=== PATIENT | female | born 1945 | race Caucasian/White ===

== ENCOUNTER → 2020-03-03 14:47 | Outpatient (CLI) | payer OTHER, MEDICARE, SELFPAY ==
--- NOTE | ~2020-03-03 | MR_ITS ---
EXAMINATION: MR brain/brain stem wo/w con DATE: 03/03/2020 15:49 INDICATION: Acoustic neuroma. TECHNIQUE: Magnetic resonance imaging (MRI) of the brain and brainstem was performed without and with 12 mL MultiHance intravenous contrast. Sequences included sagittal and axial T1-weighted FSE, axial diffusion-weighted FS EPI, axial T2*-weighted GRE, axial T2-weighted FLAIR Propeller, axial T2-weight ed Propeller, small hjqve-rg-dmhb coronal FIESTA, small opfhe-js-anls coronal T1-weighted FSE, and sm all pdgua-gs-jkgn axial T1-weighted SPGR. Postcontrast sequences included axial T1-weighted FSE, smal l cwumc-jm-whdb coronal T1-weighted FSE, and small inwsj-mb-vlrb axial T1-weighted SPGR. Apparent dif fusion coefficient (ADC) maps were created. COMPARISON: Brain MRI 02/09/2019 FINDINGS: There are scattered areas of nonspecific increased T2-weighted signal intensity in the cere bral white matter, which is within normal limits for the patient's age. There is a 14 x 10 mm enhanci ng mass in left internal auditory canal and cerebellopontine angle. There is no acute ischemic infarc t or intracranial hemorrhage. The ventricles are normal in size. The paranasal sinuses are clear. The re are likely changes of ocular lens replacement surgeries. The mastoid air cells are normal. IMPRESSION: 1. 14 x 10 mm enhancing mass in left internal auditory canal and cerebellopontine angle, consistent w ith a vestibular schwannoma, increased from 11 x 7 mm on 02/09/2019. Reviewed, dictated and finalized at location A. IMPRESSION: 1. 14 x 10 mm enhancing mass in left internal auditory canal and cerebelloponti ne angle, consistent with a vestibular schwannoma, increased from 11 x 7 mm on 02/09/2019.
[2020-03-03 15:16] LABS: Estimated Glomerular Filt Rate > 60
== END ==
DX: D33.3 Benign neoplasm of cranial nerves (principal)
CPT/HCPCS: 70553; A9577

== ENCOUNTER → 2021-05-15 10:50 | Outpatient (CLI) | payer OTHER, MEDICARE, SELFPAY ==
--- NOTE | ~2021-05-15 | MR_ITS ---
EXAMINATION: MR brain IAC wo/w con DATE: 05/15/2021 12:22 INDICATION: Left-sided vestibular schwannoma. TECHNIQUE: Magnetic resonance imaging (MRI) of the brain, brainstem, and internal auditory canals was performed without and with 12 mL MultiHance intravenous contrast. Sequences included sagittal and ax ial T1-weighted FSE, axial diffusion-weighted FS EPI, axial T2*-weighted GRE, axial T2-weighted FLAIR Propeller, axial T2-weighted Propeller, small fuevw-ar-wgoz coronal FIESTA, small uipsg-oj-zkej clarissa nal T1-weighted FSE, and small tgnrg-mc-yayz axial T1-weighted SPGR. Postcontrast sequences included axial T1-weighted FSE, small mpoxp-rh-rbby coronal T1-weighted FSE, and small tqwrj-ac-bzgp axial T1- weighted SPGR. Apparent diffusion coefficient (ADC) maps were created. COMPARISON: Brain MRI 03/03/2020 FINDINGS: There are scattered areas of nonspecific increased T2-weighted signal intensity in the cere bral white matter, which is within normal limits for the patient's age. There is no intracranial hemo rrhage or acute infarction. The ventricles are normal in size. There are changes of left mastoidectom y. There is a 4 mm enhancing mass at the left porus acusticus. There are likely changes of ocular dexter s replacement surgeries. The paranasal sinuses are clear. IMPRESSION: 1. 4 mm enhancing mass at the left porus acusticus, which may be recurrent/residual neoplasm or granu lation tissue. Reviewed, dictated and finalized at location A. EAR WASTE MANAGEMENT ENGINEER IMPRESSION: 1. 4 mm enhancing mass at the left porus acusticus, which may be recurrent/resi dual neoplasm or granulation tissue.
[2021-05-15 11:35] LABS: Estimated Glomerular Filt Rate > 60
== END ==
PROVIDERS: PCP Internal Medicine
DX: D33.3 Benign neoplasm of cranial nerves (principal); R93.89 Abnormal findings on diagnostic imaging of other specified body structures
CPT/HCPCS: 70553; A9577

== ENCOUNTER 2023-06-16 14:00 | Outpatient (RCR) | payer MEDICARE, SELFPAY ==
--- NOTE | 2023-04-08 10:47 | OPREHPOC ---
Outpatient Therapy Plan of Care This is a Multidisciplinary Plan of Care that may contain components documented by all disciplines (PT, OT, and ST.) PT Problem 1 PT Problem #1 Knowledge Deficit PT Goal 1 Goal 1. Patient will perform independent HEP Target Visit 5 PT Problem 2 PT Problem #2 Impaired Strength PT Goal 1 Goal 1. Improve pelvic floor strength to 4/5 to decrease incontinence 2. Improve pelvic floor endurance to 10 seconds to decrease incontinence Target Visit 5 PT Problem 3 PT Problem #3 Impaired Functional ADLs PT Goal 1 Goal 1. Patient will report no more than 1 instance of fecal or urinary incontinence i n1 month Target Visit 5
--- NOTE | 2023-04-08 10:47 | PTOPEVAL1 ---
Assessment and note entered by Brianna Fields DPT Evaluation Information Assessment Status Evaluation Subjective Information Pt reports she had an anal motility test performed and was sent to therapy. Pt is reporting fecal incontinence, somewhat improved recently after drinking metamucil twice a day. Had previously been noticing a lot of impaction and constipation. Incontinence has been worsening over the past few years. Recently reports BM every 2-3 days. Fecal incontinence typically occurs weekly. Denies pain with BM. Urinates less than 10 times a day, sometimes gets up 1 time at night to void. Urinary incontinence maybe 3 times a month. Can hold urge to void unlimited amounts of time unless she has had a lot of fluid, can hold urge to BM much less but unable to give a time frame. Denies history of pelvic pain. Pt has been 4 times with 4 deliveries, all vaginal with tearing. Partial hysterectomy in 1985. Bladder sling in 2018. Uses 1 pantiliner a day, does not have to change her clothes. Pt reports she eats 3 meals a day, sometimes breakfast is small and occasionally skips. Drinks coffee, soda/tea sometimes, milk, and water. Beer very infrequently, maybe once a month. Patient goal: decrease fecal incontinence, reports embarrassment. Avoids going out in the community to avoid having accidents out anywhere. Acoustic neuroma tumor removal in 2019. Reported Pain Level Pain Score 0: Self Report Assessment PT Clinical Summary The patient is presenting to skilled therapy with a several year history of fecal incontinence and infrequent urinary incontinence. She presents with decreased pelvic floor strength and endurance and decreased core strength which are contributing to her incontinence and avoidance of going out in the community. She will highly benefit from therapy to address her impairments to decrease incontinence and return to prior level of function . Plan of Care Interventions Manual Therapy,Neuro Re-education,Patient/ Caregiver Education,Therapeutic Activities, Therapeutic Exercise PT Services Indicated Yes Treatment Frequency and 1 time a week for 4 weeks Duration
--- NOTE | 2023-05-06 11:35 | OPREHPOC ---
Outpatient Therapy Plan of Care This is a Multidisciplinary Plan of Care that may contain components documented by all disciplines (PT, OT, and ST.) PT Problem 1 PT Problem #1 Knowledge Deficit PT Goal 1 Goal 1. Patient will perform independent HEP Target Visit 5 Progress Partially Met PT Problem 2 PT Problem #2 Impaired Strength PT Goal 1 Goal 1. Improve pelvic floor strength to 4/5 to decrease incontinence 2. Improve pelvic floor endurance to 10 seconds to decrease incontinence Target Visit 5 Progress Partially Met Comment endurance 10 seconds PT Problem 3 PT Problem #3 Impaired Functional ADLs PT Goal 1 Goal 1. Patient will report no more than 1 instance of fecal or urinary incontinence in 1 month Target Visit 5 Progress Met
--- NOTE | 2023-05-06 11:35 | PTOPPROG ---
Assessment and note entered by Brianna Fields DPT Evaluation Information Assessment Status Progress Subjective Information Pt reports improvements with therapy and has not had any bowel incontinence since starting therapy. States her stomach is feeling a little unwell today, I did not eat well yesterday . No urine leakage. Assessment PT Clinical Summary The patient has made good progress in therapy and reports no fecal incontinence in the last 4 weeks. She demonstrates improved core and hip strength and improved pelvic floor endurance. She continues to display pelvic floor weakness and will benefit from further therapy to progress strength to fully eliminate incontinence. Plan of Care Interventions Manual Therapy,Neuro Re-education,Patient/ Caregiver Education,Therapeutic Activities, Therapeutic Exercise PT Services Indicated Yes Treatment Frequency and 1 visit every other week for 2 visits Duration These treatments will address the objective and functional deficits as defined above. The patient will be advanced safely and appropriately in order for the patient to progress towards his/her prior level of function. Additional exercises will be introduced and as well as a comprehensive home exercise program upon discharge, if needed, ?to ensure carryover of functional gains achieved in the clinic. This treatment plan has been reviewed and agreement upon by the patient.
--- NOTE | 2023-06-16 14:30 | OPREHPOC ---
Outpatient Therapy Plan of Care This is a Multidisciplinary Plan of Care that may contain components documented by all disciplines (PT, OT, and ST.) PT Problem 1 PT Problem #1 Knowledge Deficit PT Goal 1 Goal 1. Patient will perform independent HEP Target Visit 5 Progress Met PT Problem 2 PT Problem #2 Impaired Strength PT Goal 1 Goal 1. Improve pelvic floor strength to 4/5 to decrease incontinence 2. Improve pelvic floor endurance to 10 seconds to decrease incontinence Target Visit 5 Progress Partially Met Comment endurance 10 seconds PT Problem 3 PT Problem #3 Impaired Functional ADLs PT Goal 1 Goal 1. Patient will report no more than 1 instance of fecal or urinary incontinence in 1 month Target Visit 5 Progress Met
--- NOTE | 2023-06-16 14:30 | PTOPDC ---
Assessment and note entered by Brianna Fields DPT Evaluation Information Assessment Status Discharge Subjective Information Pt reports she has not had any incontinence recently and her bowels have been better as well. Maybe 1-2 instances of fecal incontinence in the last month and small volume when it does happen. Does not feel pelvic floor issues are affecting her day to day routine at all. Pt does report she was sick yesterday is is still generally not feeling well, a little lightheaded. Reported Pain Level Pain Score 0: Self Report Assessment PT Clinical Summary The patient continues to show progress in therapy and reports overall decreased incontinence and no limitation with ADL's. She demonstrates improved LE and core strength. Due to her progress, plan for discharge at this time. She has been educated in a thorough HEP and to follow up with PT and/or MD as needed. Plan of Care PT Services Indicated No
== END 2023-06-16 15:17 | disposition home or self-care (01) ==
LOC: ANHPT 14:00
PROVIDERS: PCP Internal Medicine; Visit Provider Internal Medicine
DX: R15.9 Full incontinence of feces (principal)
CPT/HCPCS: 97112; 97162; 97530

== ENCOUNTER 2025-05-20 06:24 | Inpatient (IN) | payer MEDICARE, SELFPAY ==
[2025-05-20] VITALS (13 sets, daily range): BP systolic 131–190; BP diastolic 49–74; PULSE 60–89; RESP 10–20; TEMP 36–36.8; O2SAT 96–100; BMI 22.0
--- NOTE | ~2025-05-20 | CT_ITS ---
CT HEAD NON-CONTRAST Clinical History: AMS Comparison: Brain MRI 05/15/2021 Technique: Unenhanced axial images skull base to vertex Coronal, sagittal reformats CT images acquired with automatic exposure control for dose reduction DLP: 605 mGy-cm Findings: Chronic white matter microvascular ischemic changes Sulci, ventricles: Unremarkable. No intracerebral hemorrhage. No evidence acute territorial infarct. No mass effect, midline shift. Bony calvarium intact. Visualized paranasal sinuses: Clear. Mastoid air cells: Clear. IMPRESSION: 1. No acute intracranial findings. Reviewed, dictated and finalized at location R. L CLEANER HAND
--- NOTE | ~2025-05-20 | XR_ITS ---
Examination: XR abdomen/kub 1V Clinical History: r/o impaction Comparison: None Technique: 2 views portable supine AP abdomen Findings: Scattered colonic gas and stool. Stool volume not abnormally large. No large rectal stool volume. Small bowel loops poorly seen. Air-fluid levels cannot be assessed on supine projection. Right hemipelvis phleboliths. No acute bony abnormality IMPRESSION: 1. No acute abnormality. Reviewed, dictated and finalized at location R. F SCIENTIST IMPRESSION: 1. No acute abnormality.
--- NOTE | ~2025-05-20 | MR_ITS ---
EXAM/PROCEDURE: MR brain/brain stem wo/w con HISTORY: Altered mental status, TIA COMPARISON: May 15, 2021 TECHNIQUE: Pre and postcontrast enhanced brain MRI performed FINDINGS: There has been progression in mild to moderately severe diffuse periventricular T2 weighted hyperintense white matter changes but no abnormal enhancing lesions or masses and no restricted diffusion or acute ischemia on today's exam. No mass, mass effect or hemorrhage. IACs and mesial temporal regions appear within normal limits. Small area of left sided acoustics enhancement not clearly changed on today's exam with no clearly defined lesion seen. Brainstem and cerebellum appear stable. Periorbital paranasal calvarial structures also appear stable. IMPRESSION: 1. No acute ischemic event, mass or hemorrhage. No suspicious lesions or masses seen. Previously described left-sided acusticus lesion or enhancement focus not clearly changed. 2. Mild to moderately advanced chronic microvascular ischemic appearing white matter changes which have progressed since the 2020 exam. Reviewed, dictated and finalized at location A. HER PRODUCTION ARTISAN IMPRESSION: 1. No acute ischemic event, mass or hemorrhage. No suspicious lesions or masses seen. Previously described left-sided acusticus lesion or enhancement focus no t clearly changed. 2. Mild to moderately advanced chronic microvascular ischemic appearing white m atter changes which have progressed since the 2020 exam.
--- NOTE | ~2025-05-20 | CT_ITS ---
EXAMINATION: CT abdomen pelvis w con DATE: 05/21/2025 17:07 INDICATION: 80-year-old with vomiting. TECHNIQUE: Computed tomography (CT) of the abdomen and pelvis was performed with administration of 100 cc of intravenous contrast. Automated exposure control and iterative reconstruction technique were employed. The dose-length product was 232.41 mGy-cm. COMPARISON: KUB dated 05/20/2025. FINDINGS: Lung bases do not show acute findings. Large hiatus hernia noted in the lower mediastinum. No focal lesions of the liver and spleen. Gallbladder is distended in size without edema or calcified calculi. Pancreas bile duct do not show acute findings. Kidneys do not show calculi or obstruction. No evidence of small bowel obstruction. Severely atherosclerotic changes of proximal renal arteries. No inflammatory changes in the pelvis. Moderate fecal impaction in the colon. No free fluid or free air. IMPRESSION: 1. No acute findings in the upper abdomen and pelvis. Fecal impaction in the colon. 2. Mildly distended gallbladder. No edema of the gallbladder wall. No calcified stones. 3. Hiatus hernia. Reviewed, dictated and finalized at location T. OYMENT TRAINER IMPRESSION: 1. No acute findings in the upper abdomen and pelvis. Fecal impaction in the co merlene. 2. Mildly distended gallbladder. No edema of the gallbladder wall. No calcified stones. 3. Hiatus hernia.
--- NOTE | ~2025-05-20 | XR_ITS ---
EXAMINATION: XR chest 1V portable DATE: 05/20/2025 08:29 INDICATION: Altered mental status TECHNIQUE: A single frontal view of the chest was obtained. COMPARISON: None. FINDINGS: The lungs are clear other than scattered granulomatous appearing changes. Heart size normal. Bones appear intact. IMPRESSION: 1. Portable chest x-ray with no focal acute process. Reviewed, dictated and finalized at location A. E HAND CARDING
--- NOTE | ~2025-05-20 | CT_ITS ---
CTA NECK, CTA HEAD Clinical History: concern CVA, lkn 9 pm Comparison: CT head without contrast earlier same day TECHNIQUE: Helical images thoracic inlet to vertex IV contrast information not listed in PACS Coronal, sagittal reformats. Multi planar MIPS CT images acquired with automatic exposure control for dose reduction DLP: 1148 mGy-cm Findings: NASCET Criteria utilized CTA NECK Aortic arch: No aneurysm or dissection. Great vessel origins: No stenosis. CCAs: No stenosis. Cervical ICAs: No stenosis. Vertebral Arteries: Patent. Lung Apices: Clear. Thyroid: Enlarged, several small nodules. Nodes: No enlarged nodes. Bones: No acute bony abnormality. CTA HEAD: Aneurysms: None. Intracranial ICAs: Patent. ACAs and their distal branches: Patent, unremarkable. A-Comm: Identified. Patent, unremarkable. MCAs and their distal branches: Patent, unremarkable. Basilar artery: Patent. Terminates into superior cerebellar arteries. payable manager and their distal branches: Patent. Congenitally absent P1 segment bilaterally, with origin P-comm supply. P-Comms: Identified. Patent, unremarkable. IMPRESSION: CTA NECK: 1. No acute findings. CTA HEAD: 1. No acute findings. Reviewed, dictated and finalized at location R. D BANK ASSISTANT
--- NOTE | 2025-05-20 06:49 | ECG_ITS ---
Test Date: 2025-05-20 07:37:42 Measurements Intervals [place] Rate: 65 P: 58 MT: 151 QRS: 35 QRSD: 105 T: 59 QT: 422 QTc: 442 Interpretive Statements SINUS RHYTHM No previous ECG available for comparison Electronically Signed On 05-20-2025 11:24:07 FINISH MILL OPERATOR by Fred Richards D.O
[2025-05-20 07:36] LABS: Hematocrit 41.3 % (37.0-47.0); Hemoglobin 14.9 g/dL (12.0-15.0); Immature Granulocyte Percent A 0.5 % (0-0.5); Lymphocytes Absolute Auto 1.35 K/mm3 (0.9-3.2); Mean Corpuscular HGB Conc 36.1 g/dl (32-36); Mean Corpuscular Hemoglobin 29.8 pg (26-34); Mean Corpuscular Volume 82.6 fl (80-100); Nucleated Red Blood Cells Absolute Auto 0.000 K/mm3 (0.0-0.012); Nucleated Red Blood Cells Perc 0.0 % (0.0-0.2); Platelet Count Result 196 k/mm3 (150-375); Red Blood Count 5.00 M/mm3 (4.2-5.4); White Blood Count 10.6 K/mm3 (4.5-10.0)
--- NOTE | 2025-05-20 07:37 | ED.GENADULT ---
HPI - General Adult General Chief complaint: Altered Mental Status Stated complaint: AMS, N/V Time Seen by Provider: 05/20/25 07:00 History of Present Illness HPI narrative: 80-year-old female present to the emergency department for evaluation for increased altered mental status. Family states patient is more altered than normal. Patient states that the patient was fine last night going to bed but did seem more confused this morning and began having some word-finding difficulty. Patient does have a prior history of a brain tumor that was excised approximately 4 years ago at [facility]. Patient does continue have close follow-up with [facility] and was scheduled to have an MRI today. This was just routine to ensure that there has been no enlarging of the residual tumor. Patient has no prior history of seizure or epilepsy per family. At time of initial evaluation patient was slow to respond and had difficulty participating in the neuro exam. Related Data Home Medications ?Medication ?Instructions ?Recorded ?Confirmed ?Last Taken ?Type carvedilol 6.25 mg tablet 6.25 mg PO Q12H 05/20/25 05/20/25 Unknown History diazepam 10 mg tablet 10 mg PO Q6H PRN anxiety 05/20/25 05/20/25 Unknown History duloxetine 20 mg capsule,delayed 20 mg PO DAILY 05/20/25 05/20/25 Unknown History release estradiol 0.01% (0.1 mg/gram) 1 g vaginal .COMPLEX 05/20/25 05/20/25 Unknown History vaginal cream fluticasone propionate 50 2 spray intranasal DAILY 05/20/25 05/20/25 Unknown History mcg/actuation nasal spray,suspension hydralazine 50 mg tablet 50 mg PO BID 05/20/25 05/20/25 Unknown History hydrochlorothiazide 25 mg tablet 25 mg PO DAILY 05/20/25 05/20/25 Unknown History losartan 100 mg tablet 100 mg PO DAILY 05/20/25 05/20/25 Unknown History nifedipine 30 mg tablet,extended 30 mg PO DAILY 05/20/25 05/20/25 Unknown History release omeprazole 20 mg capsule,delayed 20 mg PO BID 05/20/25 05/20/25 Unknown History release rosuvastatin 20 mg tablet 20 mg PO HS 05/20/25 05/20/25 Unknown History Allergies Allergy/AdvReac Type Severity Reaction Status Date / Time Quinolones Allergy Unknown Verified 05/20/25 17:14 Review of Systems Review of Systems: All systems reviewed & are unremarkable except as noted in HPI and below PMFSH Family History Family History (Updated 05/20/25 @ 16:23 by Albin Murphy RN) Father Acute myocardial infarction Mother Hypertension Social History Social History Smoking status: Former smoker Alcohol intake: never Substance use: never Lack of Transportation: No Lack of Food: Never True Current Housing: I Have Housing Concerned About Future Housing: No Difficulty Paying Gas/Electric Bills: No Difficulty Paying for Meds: No Currently Unemployed: No Education: High School Diploma/GED Difficulty w/ Childcare or Family Care: No Spiritual care concerns: No Exam Narrative: APPEARANCE: Well appearing, no pain, no distress, well-nourished. HEAD: normocephalic, atraumatic. EYES: PERRLA/EOMI, conjunctivae clear. NOSE: Normal no drainage EARS:TMS clear with good light reflex. THROAT: Pharynx clear, no exudate. NECK: Supple. No adenopathy, no masses. RESPIRATORY: Airway patent, respirations nonlabored. Clear to auscultation bilaterally, no rales, rhonchi, wheezing. CARDIOVASCULAR: Regular rate and rhythm without murmurs rubs or gallops. ABDOMINAL: Soft, nontender, nondistended, normal bowel sounds MUSCULOSKELETAL: Moves all extremities. Strength/ROM intact, No edema, No calf tenderness. NEURO: Confused with no focal neuro deficit SKIN: Warm, dry. Normal Color Course Vital Signs Vital signs: Vital Signs Temperature 96.8 F L 05/20/25 06:22 Pulse Rate 68 05/20/25 06:22 Respiratory Rate 20 05/20/25 06:22 Blood Pressure 190/69 H 05/20/25 06:22 Pulse Oximetry 98 05/20/25 06:22 Oxygen Delivery Room Air 05/20/25 06:22 Temperature 98.3 F 05/20/25 16:00 Pulse Rate 63 05/20/25 16:00 Respiratory Rate 16 05/20/25 16:00 Blood Pressure 180/67 H 05/20/25 16:00 Pulse Oximetry 99 05/20/25 16:00 Oxygen Delivery Room Air 05/20/25 16:00 Medical Decision Making MDM Narrative Medical decision making narrative: 80-year-old female present to the emergency department for evaluation for worsened mental status. Patient is currently being treated for urinary tract infection but UA does not appear infectious, patient is afebrile and patient has a mild leukocytosis of 10.6. CTA was negative for acute finding. Patient does have a low sodium of 122 and patient was initially treated with a L of lactated Ringer's. On initial exam patient was having difficulty cooperating with neuro exam and was having some word-finding difficulty. This is the symptoms that the patient's noticed this morning. On re-evaluation the patient appears back to her normal baseline. Patient states that in order to have the MRI that she will need to have some Valium. Patient was able to give me her patient history and patient was alert orientated improved compared to this morning. I did discuss the case with Neurology and they are consulted. Patient will be admitted for an MRI and potential seizure workup. Patient has no prior history of seizure. Case will be discussed with the hospitalist. Differential Diagnosis Differential Diagnosis: TIA, CVA, UTI, delirium, seizure Vital Signs Vital Signs: Vital Signs Temperature 96.8 F L 05/20/25 06:22 Pulse Rate 68 05/20/25 06:22 Respiratory Rate 20 05/20/25 06:22 Blood Pressure 190/69 H 05/20/25 06:22 Pulse Oximetry 98 05/20/25 06:22 Oxygen Delivery Room Air 05/20/25 06:22 Temperature 98.3 F 05/20/25 16:00 Pulse Rate 63 05/20/25 16:00 Respiratory Rate 16 05/20/25 16:00 Blood Pressure 180/67 H 05/20/25 16:00 Pulse Oximetry 99 05/20/25 16:00 Oxygen Delivery Room Air 05/20/25 16:00 Lab Data Lab results reviewed: Yes I reviewed the patient's lab results. 05/20/25 07:30 05/20/25 07:30 Labs: Lab Results 05/20/25 05/20/25 Range/Units 07:30 07:47 WBC 10.6 H (4.5-10.0) K/mm3 RBC 5.00 (4.2-5.4) M/mm3 Hgb 14.9 (12.0-15.0) g/dL Hct 41.3 (37.0-47.0) % MCV 82.6 (80-100) fl MCH 29.8 (26-34) pg MCHC 36.1 H (32-36) g/dl RDW 11.8 (11.5-14.5) % Plt Count 196 (150-375) k/mm3 MPV 12.3 H (7.4-10.4) fl Immature Gran % (Auto) 0.5 (0-0.5) % Neut % (Auto) 82.0 H (45.5-73.1) % Lymph % (Auto) 12.7 L (18.3-44.2) % Cloud % (Auto) 4.1 (2.6-8.5) % Eos % (Auto) 0.2 (0-4.4) % Baso % (Auto) 0.5 (0.2-1.2) % Lymph # (Auto) 1.35 (0.9-3.2) K/mm3 Cloud # (Auto) 0.4 (0.1-0.6) K/mm3 Eos # (Auto) 0.0 (0-0.3) K/mm3 Baso # (Auto) 0.1 (0.0-0.1) K/mm3 Abs Immat Gran (auto) 0.05 H (0.00-0.031) K/mm3 Absolute Neuts (auto) 8.7 H (1.3-6.7) K/mm3 Absolute Nucleated RBC 0.000 (0.0-0.012) K/mm3 Nucleated RBC % 0.0 (0.0-0.2) % PT 13.0 (11.1-14.7) Seconds INR 1.0 APTT 29.2 (22.3-36.8) Seconds Sodium 122 L (137-145) mmol/L Potassium 4.2 (3.4-5.0) mmol/L Chloride 88 L (98-107) mmol/L Carbon Dioxide 26 (22-30) mmol/L Anion Gap 8 (4-12) mmol/L BUN 15 (7-17) mg/dL Creatinine 0.59 L (0.7-1.0) mg/dL Estim Creat Clear Calc Not Reportable Estimated GFR > 60 (59 - ) Glucose 135 H (65-110) mg/dL Calcium 9.2 (8.4-10.2) mg/dL Total Bilirubin 0.9 (0.2-1.3) mg/dL AST 29 (14-36) U/L ALT 23 (6-35) U/L Alkaline Phosphatase 58 (38-126) U/L Total Protein 7.9 (6.3-8.2) g/dL Albumin 4.8 (3.5-5.1) g/dL Urine Color Dark yellow (Yellow) Urine Appearance Clear (Clear) Urine pH 7.5 (5.0-9.0) Ur Specific Dalhart 1.017 (1.001-1.035) Urine Protein 1+ H (Negative) mg/dL Urine Glucose (UA) Negative (Negative) mg/dL Urine Ketones 1+ H (Negative) mg/dL Ur Blood (Man) Negative (Negative) Urine Nitrate Negative (Negative) Urine Bilirubin Negative (Negative) Urine Urobilinogen 1.0 (<2.0) mg/dL Leukocyte Esterase Rfl Negative (Negative) NAN/UL Urine RBC 3-5 H (0-2) /hpf Urine WBC 0-5 (0-3) /hpf Ur Squamous Epith Cells None seen (Few) /hpf Urine Bacteria None seen /hpf Urine Casts 0-2 Influenza A (RT-PCR) Negative (Negative) Influenza B (RT-PCR) Negative (Negative) RSV (RT-PCR) Negative (Negative) SARS-CoV-2 RNA (RT-PCR) Negative (Negative) Imaging Data Attestation: I personally reviewed and interpreted this imaging study as follows: My impression: Chest x-ray: No acute cardiopulmonary abnormality Radiologist's impression: Impressions Head CT 05/20/25 07:23 IMPRESSION: 1. No acute intracranial findings. Chest X-Ray 05/20/25 08:29 IMPRESSION: 1. Portable chest x-ray with no focal acute process. Head/Neck CTA 05/20/25 09:16 IMPRESSION: CTA NECK: 1. No acute findings. CTA HEAD: 1. No acute findings. Discharge Plan Discharge Clinical Impression: Altered mental status Patient Disposition: Still a Patient Condition: Stable
[2025-05-20 07:47] LABS: INR 1.0; Prothrombin Time 13.0 Seconds (11.1-14.7)
[2025-05-20 07:48] LABS: Partial Thromboplastin Time 29.2 Seconds (22.3-36.8)
[2025-05-20 07:54] LABS: Alanine Aminotransferase 23 U/L (6-35); Albumin Level 4.8 g/dL (3.5-5.1); Alkaline Phosphatase 58 U/L (38-126); Anion Gap 8 mmol/L (4-12); Aspartate Amino Transferase 29 U/L (14-36); Bilirubin,Total 0.9 mg/dL (0.2-1.3); Blood Urea Nitrogen 15 mg/dL (7-17); Calcium 9.2 mg/dL (8.4-10.2); Carbon Dioxide 26 mmol/L (22-30); Chloride 88 mmol/L (98-107); Estimated Glomerular Filt Rate > 60; Glucose 135 mg/dL (65-110); Potassium 4.2 mmol/L (3.4-5.0); Sodium 122 mmol/L (137-145); Total Protein 7.9 g/dL (6.3-8.2)
[2025-05-20 07:57] LABS: Add Urine Microscopic? YES; Appearance Urine Clear (Clear); Glucose Urine UA Negative (Negative); Leukocyte Esterase Ur Negative LEU/UL (Negative); Nitrate Urine Negative (Negative); Non Pathogenic Casts 0-2; Specific Grav Ur 1.017 (1.001-1.035)
[2025-05-20 08:12] LABS: Influenza A QL RT-PCR Negative (Negative); Influenza B QL RT-PCR Negative (Negative); RSV RNA, RT-PCR Negative (Negative); SARS-CoV-2 RNA PCR Negative (Negative)
[2025-05-20] MEDS: LACTATED RINGERS 1,000 ML 999 ML IV CONT (08:58)
--- NOTE | 2025-05-20 15:31 | WPCEDHO ---
ED Hand Off Checklist All vitals saved:YES IV Site documented:YES All med administrations documented:YES Triage Note Triage Note brought in by ems from home - 05/20/25 06:22 family called because a little more altered than usual. ems said oriented to person place and situation, not time upon arrival . according to ems stated she has a history of brain tumor. Allergies No Known Allergies Allergy (Unverified 01/08/19 10:30) Administered/Completed Medications Discontinued Medications Lactated Ringer's (Lr - Lactated Ringers Iv) 1,000 mls @ 999 mls/hr IV CONT .Q1H1M STA Stop: 05/20/25 09:37 Last Infusion: 05/20/25 10:50 Dose: Infused Documented By: Admin: 05/20/25 08:58 Dose: 999 mls/hr Documented By: MYRIAM Interventions/Assessments IV / Saline Lock, Insert Start: 05/20/25 06:49 Freq: STAT Status: Active Protocol: Document 05/20/25 08:58 AZG (Rec: 05/20/25 08:58 AZG [id number]) IV Assessment Peripheral Access Left Antecubital IV Catheter Access Initiated Before Arrival IV Insertion Date 05/20/25 Catheter Gauge 20 IV Site Assessment WNL IV Care and WNL Maintenance PA: Cardiovascular Assessment Start: 05/20/25 06:22 Freq: Status: Complete Protocol: Document 05/20/25 06:22 SRW (Rec: 05/20/25 06:45 SRW [id number]) Cardiovascular Assessment Cardiovascular None Symptoms Skin Description Warm Heart Sounds Normal Jugular Vein None Distention PA: Neurological Assessment Start: 05/20/25 06:22 Freq: Status: Complete Protocol: Document 05/20/25 12:00 CFG (Rec: 05/20/25 14:23 CFG [id number]) Neurological Assessment Level of Alert Consciousness Arousable to Verbal Orientation Oriented to Person,Oriented to Place,Oriented to Time Neurological Weakness, General Symptoms Hallucination Type None Behavior Appropriate,Cooperative,Fatigued Patient Unable to Comprehend Comprehension Memory Description Unable to Assess Ability to Maintain Unable to Assess Balance Facial Symmetry Symmetrical Speech Pattern Delayed Ability to Swallow Normal Tongue Position Unable to Assess Finger to Nose Test Activity Impossible Heel to Dasilva Test Activity Impossible Bilateral All Extremities Extremity Movement Normal Description Bilateral All Extremities Sensation Normal Description Dresser Coma Scale Eyes Open Verbal Oriented and Alert Motor Follows Commands Mary Coma Total 15 Score PA: Respiratory Assessment Start: 05/20/25 06:22 Freq: Status: Complete Protocol: Document 05/20/25 06:22 SRW (Rec: 05/20/25 06:46 SRW [id number]) Respiratory Assessment Symptoms None Effort Normal Pattern Regular Chest Expansion Symmetrical Last Vital Signs Temperature 96.8 F L 05/20/25 06:22 Pulse Rate 65 05/20/25 15:00 Respiratory Rate 11 L 05/20/25 15:00 Pulse Oximetry 100 05/20/25 15:00 Blood Pressure 166/66 H 05/20/25 15:00 Blood Pressure Mean 99 05/20/25 15:00 Oxygen Delivery Room Air 05/20/25 06:22 Weight 62.9 kg 05/20/25 06:22 Last Result - Abnormals Only WBC 10.6 K/mm3 (4.5-10.0) H 05/20/25 07:30 MCHC 36.1 g/dl (32-36) H 05/20/25 07:30 MPV 12.3 fl (7.4-10.4) H 05/20/25 07:30 Neut % (Auto) 82.0 % (45.5-73.1) H 05/20/25 07:30 Lymph % (Auto) 12.7 % (18.3-44.2) L 05/20/25 07:30 Abs Immat Gran (auto) 0.05 K/mm3 (0.00-0.031) H 05/20/25 07:30 Absolute Neuts (auto) 8.7 K/mm3 (1.3-6.7) H 05/20/25 07:30 Sodium 122 mmol/L (137-145) L 05/20/25 07:30 Chloride 88 mmol/L (98-107) L 05/20/25 07:30 Creatinine 0.59 mg/dL (0.7-1.0) L 05/20/25 07:30 Glucose 135 mg/dL (65-110) H 05/20/25 07:30 Urine Protein 1+ mg/dL (Negative) H 05/20/25 07:47 Urine Ketones 1+ mg/dL (Negative) H 05/20/25 07:47 Urine RBC 3-5 /hpf (0-2) H 05/20/25 07:47 Most Recent Suicide Severity Rating Suicide Severity Rating NO RISK INDICATED 05/20/25 06:22
--- NOTE | 2025-05-20 15:58 | ADMGEN ---
This patient, Jodee Acosta, was admitted to 2 Medical Room 256-. Patient/family oriented to hospital policies and general routines including ID bracelet, bed and alarms, visiting hours, pain management, procedures, bathroom and other care routines, personal items, smoking policy, room service/diet, and visiting hours. Information on how to activate the Rapid Response Team has been discussed. Patient/Family are encouraged to report perceived risks to care and to ask questions if they do not understand what they are told or what they should do.
--- NOTE | 2025-05-20 16:23 | PM.IMHP ---
H&P: HPI History of Present Illness Date/Time: 05/20/25 16:23 Chief Complaint: AMS Narrative: 80-year-old female past medical history of left-sided vestibular schwannoma, HTN, hyperlipidemia, GERD presents to the ED with her family on 05/20/2025 for increased altered mental status. Family states that the patient is more altered than normal. The further state the patient was her normal self when she went to bed but seemed more confused this morning and that she had some word-finding difficulty. Patient had her vestibular schwannoma excised in 2019 at [facility]. She continues to follow-up and has serial MRIs to monitor it. Per family, patient has no seizure history. Patient is forgetful and is somewhat of a poor historian. She denies fevers, chest pain, cough, vision changes. Patient states she did have a bout of nausea and vomiting on 05/19. She states she has constipation at times which she takes Colace for. Patient endorses a headache which she states began after starting a new blood pressure medication and is concerned it is the cause of her headache. Mental status did improve while patient was in the ED. Initial vital signs 190/69, HR 68, respirations 20, afebrile and 98% on room air Lab significant for WBC 10.6, sodium 122, chloride 88, creatinine 0.59, glucose 135, UA without signs of infection. Viral panel negative. ECG with normal sinus rhythm Head CT with no acute intracranial findings. Chest x-ray with no acute process. CTA head neck with no acute findings. Review of Systems Review of Systems: All systems reviewed & are unremarkable except as noted in HPI and below PMFSH Past Medical History Medical History (Updated 05/20/25 @ 22:52 by Lashon Aceves APRN) Vestibular schwannoma Hypertension Hyperlipidemia Family History Family History (Updated 05/20/25 @ 16:23 by Albin Murphy RN) Father Acute myocardial infarction Mother Hypertension Social History Social History Smoking status: Former smoker Alcohol intake: never Substance use: never Lack of Transportation: No Lack of Food: Never True Current Housing: I Have Housing Concerned About Future Housing: No Difficulty Paying Gas/Electric Bills: No Difficulty Paying for Meds: No Currently Unemployed: No Education: High School Diploma/GED Difficulty w/ Childcare or Family Care: No Spiritual care concerns: No Meds Home Medications and Allergies Home Medications ?Medication ?Instructions ?Recorded ?Confirmed ?Type carvedilol 6.25 mg tablet 6.25 mg PO Q12H 05/20/25 05/20/25 History diazepam 10 mg tablet 10 mg PO Q6H PRN anxiety 05/20/25 05/20/25 History duloxetine 20 mg capsule,delayed 20 mg PO DAILY 05/20/25 05/20/25 History release estradiol 0.01% (0.1 mg/gram) 1 g vaginal .COMPLEX 05/20/25 05/20/25 History vaginal cream fluticasone propionate 50 2 spray intranasal DAILY 05/20/25 05/20/25 History mcg/actuation nasal spray,suspension hydralazine 50 mg tablet 50 mg PO BID 05/20/25 05/20/25 History hydrochlorothiazide 25 mg tablet 25 mg PO DAILY 05/20/25 05/20/25 History losartan 100 mg tablet 100 mg PO DAILY 05/20/25 05/20/25 History nifedipine 30 mg tablet,extended 30 mg PO DAILY 05/20/25 05/20/25 History release omeprazole 20 mg capsule,delayed 20 mg PO BID 05/20/25 05/20/25 History release rosuvastatin 20 mg tablet 20 mg PO HS 05/20/25 05/20/25 History Allergies Allergy/AdvReac Type Severity Reaction Status Date / Time Quinolones Allergy Unknown Verified 05/20/25 17:14 Vital Signs Vital Signs - 24 hr 05/20/25 06:22 05/20/25 08:31 05/20/25 09:00 Temperature 96.8 F L Pulse Rate 68 69 66 Respiratory Rate 20 16 10 L Blood Pressure 190/69 H 171/74 H 174/64 H Pulse Oximetry 98 98 98 Oxygen Delivery Room Air 05/20/25 09:44 05/20/25 10:02 05/20/25 11:45 Temperature Pulse Rate 64 62 60 Respiratory Rate 15 13 16 Blood Pressure 154/51 H 146/54 H 131/49 L Pulse Oximetry 98 98 96 Oxygen Delivery 05/20/25 13:18 05/20/25 14:17 05/20/25 15:00 Temperature Pulse Rate 89 62 65 Respiratory Rate 11 L 16 11 L Blood Pressure 186/60 H 178/60 H 166/66 H Pulse Oximetry 98 96 100 Oxygen Delivery Exam Narrative: GENERAL: non-toxic appearing, in no acute distress. HEAD: Normocephalic, atraumatic. EYES: PERRLA. Conjunctivae clear. NOSE: Normal no drainage. THROAT: Pharynx clear, no exudate. NECK: Trachea midline. No adenopathy, no masses. RESPIRATORY: Airway patent, respirations nonlabored. CTA. CARDIOVASCULAR: Regular rate and rhythm BREASTS: Defer GASTROINTESTINAL: Abdomen is soft and nontender. No organomegaly. Bowel sounds hypoactive. GENITOURINARY: Defer MUSCULOSKELETAL: Moves all extremities. No gross deformities. Generalized weakness baseline SKIN: Warm, dry, normal color. NEURO: A&O X3. Speech clear. Patient forgetful PSYCHIATRIC: Normal interaction H&P: Results Labs Labs: Short CBC 05/20/25 Range/Units 07:30 WBC 10.6 H (4.5-10.0) K/mm3 Hgb 14.9 (12.0-15.0) g/dL Hct 41.3 (37.0-47.0) % Plt Count 196 (150-375) k/mm3 BMP 05/20/25 07:30 Sodium 122 L Potassium 4.2 Chloride 88 L Carbon Dioxide 26 BUN 15 Creatinine 0.59 L Glucose 135 H Calcium 9.2 Liver Function 05/20/25 Range/Units 07:30 Total Bilirubin 0.9 (0.2-1.3) mg/dL AST 29 (14-36) U/L ALT 23 (6-35) U/L Alkaline Phosphatase 58 (38-126) U/L Albumin 4.8 (3.5-5.1) g/dL Urine 05/20/25 Range/Units 07:47 Urine Color Dark yellow (Yellow) Urine Appearance Clear (Clear) Urine pH 7.5 (5.0-9.0) Ur Specific [place] 1.017 (1.001-1.035) Urine Protein 1+ H (Negative) mg/dL Urine Glucose (UA) Negative (Negative) mg/dL Assessment and Plan Assessment and plan (1) Altered mental status: Qualifiers: Altered mental status type: unspecified Qualified Code(s): R41.82 - Altered mental status, unspecified Code(s): R41.82 - Altered mental status, unspecified Status: Acute Assessment and Plan: Family states that the patient is more altered than normal. The further state the patient was her normal self when she went to bed but seemed more confused this morning and that she had some word-finding difficulty. Head CT with no acute findings. Head neck CTA with no acute findings. Chest x-ray no acute process. Patient does have history of left-sided vestibular schwannoma which was removed in 2019 at [facility]. Patient later in the evening demonstrated forgetfulness with the nurse when she again brought up having a headache and being concerned about her blood pressure medication being the cause. She had no recollection of our previous conversation only a couple hours prior. - admission for observation and telemetry - neurology consulted - brain MRI w/wo ordered - echo w/Bubble ordered - neuro checks Q4 - heart healthy diet--> patient now NPO due to episode of vomiting. - PT/OT to eval and daren - monitor daily labs, lipid panel, A1C - up with assist -continue rosuvastatin (2) Constipation: Qualifiers: Constipation type: unspecified constipation type Qualified Code(s): K59.00 - Constipation, unspecified Code(s): K59.00 - Constipation, unspecified Status: Acute Assessment and Plan: Patient mentions that she is constipated at times. She states she takes Colace. Last bowel movement was on 05/17 which was described as hard at the beginning then soft. Patient with episode of vomiting late in the evening. -KUB with moderate stool burden on my read -soapsuds enema x1 -continue Colace -MiraLax daily -may resume heart healthy diet once nausea has subsided -Zofran p.r.n. -schedule Reglan (3) Hypertension: Qualifiers: Hypertension type: primary hypertension Qualified Code(s): I10 - Essential (primary) hypertension Code(s): I10 - Essential (primary) hypertension Status: Chronic Assessment and Plan: Continue Coreg, hydralazine, hydrochlorothiazide, Cozaar, nifedipine (4) Hyperlipidemia: Qualifiers: Hyperlipidemia type: unspecified Qualified Code(s): E78.5 - Hyperlipidemia, unspecified Code(s): E78.5 - Hyperlipidemia, unspecified Status: Chronic Assessment and Plan: Continue rosuvastatin -lipid panel pending (5) Vestibular schwannoma: Code(s): D33.3 - Benign neoplasm of cranial nerves Status: Chronic Assessment and Plan: Patient follows with [facility] for serial MRIs to monitor. -MRI on 05/21 Plan Diet: Heart healthy--> currently NPO for vomiting GI prophylaxis: Pantoprazole DVT prophylaxis: Lovenox lines/drains: PIV Fluids: 1 L LR bolus Code status: Full Quality VTE Prophylaxis VTE prophylaxis: pharmacologic ordered Hospitalist [facility] Advance Care Plan I have confirmed that the patient's Advanced Care Plan is present, code status is documented, or surrogate decision maker is listed in patient medical record.: Yes Medication Reconciliation I have utilized all available resources to obtain, update and review the patients current medications (includes all prescriptions, OTC, herbals, cannabis, and nutritional supplements).: Yes
--- NOTE | 2025-05-20 17:15 | PC.NURSE ---
Patient unable to provide allergies or current medication list. This RN verified medications and allergies with pharmacy informatics manager of [facility] [place] to [place] paperwork from [facility].
[2025-05-20] MEDS: ROSUVASTATIN 20 MG TABLET PO (20:02)
[2025-05-20] MEDS: DOCUSATE SODIUM 100 MG CAPSULE PO (20:02)
[2025-05-20] MEDS: ENOXAPARIN 40 MG/0.4 ML SYRINGE SUB-Q (20:03)
[2025-05-20] MEDS: ACETAMINOPHEN 325 MG TABLET 650 MG PO (21:07)
[2025-05-20] MEDS: ONDANSETRON INJ 4 MG/2 ML VIAL IV PUSH (21:14)
[2025-05-20] MEDS: METOCLOPRAMIDE HCL INJ 10 MG/2 ML VIAL 5 MG IV PUSH (23:26)
[2025-05-21] VITALS (12 sets, daily range): BP systolic 138–156; BP diastolic 47–61; PULSE 59–76; RESP 16–20; TEMP 36.7–37.3; O2SAT 96–97
--- NOTE | 2025-05-21 | ECHO_ITS ---
Patient Info Name: Jodee Acosta Age: 80 years : 1945 Gender: Female Ht: 65 in Wt: 137 lbs BSA: 1.69 m2 HR: 68 bpm BP: 156 / 60 mmHg Heart Rhythm: Sinus Rhythm Technical Quality: Fair Exam Date: 05/21/2025 12:33 PM Patient Status: I Admit Date: 05/21/2025 Exam Type: CA echo doppler w bubble study Complete two-dimensional, color flow and Doppler transthoracic echocardiogram is performed with agitated saline. Staff Referring Physician: Rosemary Worley Ordering Physician: Fara Pinto Attending Provider: Rj Walden Contrast/Agitated Saline Contrast/Ag. Saline: Agitated Saline Amount: 20.00 ml Existing IV Access: Yes IV Access Condition: patent with no signs of infiltration Summary 1. Left ventricular chamber dimension is normal. 2. Left ventricular systolic function is normal, estimated at 65-70. 3. There is no increased left ventricular wall thickness. 4. The left ventricular diastolic function is grade I diastolic dysfunction. 5. Left atrial chamber dimension is mildly enlarged. 6. Intact interatrial septum visualized by color flow and agitated saline imaging. 7. There is mild aortic valve stenosis with a peak velocity of 172 cm/s, mean gradient of 6 mmHg, and aortic valve area of 1.8 cm2. 8. There is moderate aortic valve calcification. 9. There is mild mitral valve regurgitation. 10. The mitral valve annulus is moderately calcified. 11. There is mild tricuspid valve regurgitation. 12. Mild pulmonary hypertension, estimated pulmonary arterial systolic pressure is 41 mmHg. Left Ventricle Left ventricular chamber dimension is normal. Left ventricular systolic function is normal, estimated at 65-70. There is no increased left ventricular wall thickness. The left ventricular diastolic function is grade I diastolic dysfunction. Right Ventricle Right ventricular chamber dimension is normal. Right ventricular systolic function is normal. Left Atria Left atrial chamber dimension is mildly enlarged. Right Atria Right atrial chamber dimension is normal. Atrial Septum Intact interatrial septum visualized by color flow and agitated saline imaging. Aortic Valve The aortic valve is trileaflet. There is mild aortic valve stenosis with a peak velocity of 172 cm/s, mean gradient of 6 mmHg, and aortic valve area of 1.8 cm2. There is trace aortic valve regurgitation. There is moderate aortic valve calcification. Pulmonic Valve The pulmonic valve is normal. There is no pulmonic valve stenosis. There is trace pulmonic regurgitation. Mitral Valve There is no mitral valve stenosis. There is mild mitral valve regurgitation. The mitral valve annulus is moderately calcified. Tricuspid Valve The tricuspid valve leaflets are normal. There is no significant tricuspid valve stenosis. There is mild tricuspid valve regurgitation. Mild pulmonary hypertension, estimated pulmonary arterial systolic pressure is 41 mmHg. Pericardium/Pleural The pericardium appears normal. Inferior Vena Cava Normal inferior vena cava with >50% collapse upon inspiration consistent with normal right atrial pressure, 10 mmHg. Aorta The aortic root size at the sinus of Valsalva is normal. Left Ventricular Outflow Tract Name Value Normal LVOT 2D LVOT Diameter 1.9 cm LVOT Doppler LVOT Peak Velocity 113 cm/s LVOT Peak Gradient 5 mmHg LVOT Mean Gradient 3 mmHg LVOT VTI 23 cm LVOT VTI/AV VTI Ratio 0.6 LVOT Stroke Volume 65 ml LVOT CO 4.2 l/min LVOT CI 2.5 l/min/m2 Mitral Valve Name Value Normal MV Diastolic Function MV E Peak Velocity 93 cm/s MV A Peak Velocity 111 cm/s MV E/A 0.8 MV Decel Time (PW) 394 ms MV Annular TDI MV E/e' (Septal) 14.2 MV E/e' (Lateral) 12.1 MV E/e' (Average) 13.2 Tricuspid Valve Name Value Normal TV Regurgitation Doppler TR Peak Velocity 277 cm/s TR Peak Gradient 31 mmHg Estimated PAP/RSVP RA Pressure 10 mmHg <=5 PA Systolic Pressure 41 mmHg <36 RV Systolic Pressure 41 mmHg <36 TV Annular TDI TV Lateral Alida s' Velocity 19.2 cm/s >=9.5 Aorta Name Value Normal Ascending Aorta Ao Root Diameter (MM) 2.2 cm Ao Root Diam Index (MM) 1.3 cm/m2 Aortic Valve Name Value Normal AV Doppler AV Peak Velocity 172 cm/s AV Peak Gradient 12 mmHg AV Mean Gradient 6 mmHg AV VTI 35 cm AV Area (Cont Eq VTI) 1.8 cm2 >=3.0 AV Area (Cont Eq Villa) 1.9 cm2 AV DI (Villa) 0.66 AV Regurgitation 2D LVOT Area 2.8 cm2 Ventricles Name Value Normal LV Dimensions 2D/MM IVS Diastolic Thickness (2D) 0.7 cm 0.6-1.0 LVID Diastole (2D) 4.5 cm 3.8-5.2 LVIW Diastolic Thickness (2D) 0.7 cm 0.6-0.9 LVID Systole (2D) 2.8 cm 2.2-3.5 LVOT Diameter 1.9 cm LV Mass (2D Cubed) 96.68 g 67.00-162.00 LV Mass Index (2D Cubed) 57 g/m2 43-95 Relative Wall Thickness (2D) 0.31 <=0.42 LV Fractional Shortening/Ejection Fraction 2D/MM LV Fractional Shortening (2D) 37 % 27-45 LV EF (2D Teichholz) 67 % LV Diastolic Volume (4C MOD) 36 ml LV EF (4C MOD) 76 % LV Diastolic Volume (2C MOD) 39 ml LV EF (2C MOD) 68 % LV Diastolic Volume (BP MOD) 38 ml 46-106 LV Diastolic Volume Index (BP MOD) 23 ml/m2 29-61 LV Systolic Volume (BP MOD) 11 ml 14-42 LV Systolic Volume Index (BP MOD) 6 ml/m2 8-24 LV EF (BP MOD) 71 % 54-74 LV Diastolic Length (4C) 6.7 cm LV Systolic Length (4C) 5.8 cm LV Stroke Volume (4C MOD) 27 ml Atria Name Value Normal LA Dimensions LA Dimension (MM) 4.4 cm 2.7-3.8 LA Volume (4C A-L) 51 ml LA Volume (BP A-L) 46 ml RA Dimensions RA Area (4C) 10.8 cm2 <=18.0 Report Signatures
[2025-05-21 04:48] LABS: Hematocrit 38.5 % (37.0-47.0); Hemoglobin 13.7 g/dL (12.0-15.0); Immature Granulocyte Percent A 0.7 % (0-0.5); Lymphocytes Absolute Auto 1.09 K/mm3 (0.9-3.2); Mean Corpuscular HGB Conc 35.6 g/dl (32-36); Mean Corpuscular Hemoglobin 29.7 pg (26-34); Mean Corpuscular Volume 83.3 fl (80-100); Nucleated Red Blood Cells Absolute Auto 0.000 K/mm3 (0.0-0.012); Nucleated Red Blood Cells Perc 0.0 % (0.0-0.2); Platelet Count Result 197 k/mm3 (150-375); Red Blood Count 4.62 M/mm3 (4.2-5.4); White Blood Count 12.0 K/mm3 (4.5-10.0)
[2025-05-21 05:03] LABS: Hemoglobin A1C 5.5 % (<5.7)
[2025-05-21 05:06] LABS: Anion Gap 8 mmol/L (4-12); Blood Urea Nitrogen 12 mg/dL (7-17); Calcium 8.6 mg/dL (8.4-10.2); Carbon Dioxide 24 mmol/L (22-30); Chloride 89 mmol/L (98-107); Cholesterol 121 mg/dL (0-200); Estimated CRCL calculation 54 ml/min; Estimated Glomerular Filt Rate > 60; Glucose 133 mg/dL (65-110); HDL Direct 49 mg/dL; Potassium 3.8 mmol/L (3.4-5.0); Sodium 121 mmol/L (137-145); Triglycerides 68 mg/dL (<150)
[2025-05-21] MEDS: METOCLOPRAMIDE HCL INJ 10 MG/2 ML VIAL 5 MG IV PUSH ×4 (05:08→23:22)
--- NOTE | 2025-05-21 08:00 | PM.IMPN ---
Progress Note: A&P Assessment and Plan (1) Altered mental status: Qualifiers: Altered mental status type: unspecified Qualified Code(s): R41.82 - Altered mental status, unspecified Code(s): R41.82 - Altered mental status, unspecified Status: Acute Assessment and Plan: Family states that the patient has increased altered mental status and word finding difficulties. Possibly related to TIA vs CVA vs Hyponatremia vs Seizure - Lipid panel WNL, continue high intensity statin with rosuvastatin 20 mg daily - Head CT and Head/neck CTA were unremarkable - MRI ordered - Echo ordered - Initiate stroke protocol, NIH Stroke Scale, neuro's q.4 hours - Monitor CBC, CMP, magnesium, troponin, and lipid profile - Monitor blood pressure, allow for permissive hypertension. - Telemetry monitoring - Monitor blood glucose - PT/OT eval and treat - Consider speech therapy - Neurology consulted, appreciate assistance and recommendations EEG ordered Started on asa 81 mg daily and plavix 75 mg daily for 21 days Discussed patient with neurology Dr. Downey who agrees with starting patient on asa and plavix at this time. Patient is AOx3 however occasional aphasia noted on exam. Per back to baseline. (2) Hyponatremia: Code(s): E87.1 - Hypo-osmolality and hyponatremia Status: Acute Assessment and Plan: - Na 122 on admission, received 1L bolus LR in the ED and Na 121 on am labs. No prior labs to compare. - Holding HCTZ - add urine osmolality, serum osmolality, and urine sodium - if euvolemic rule out SIDAH 2/2 SCLC with chest xr: unremarkable adrenal insufficiency: cortisol and TSH - nephrology consulted (3) Nausea & vomiting: Code(s): R11.2 - Nausea with vomiting, unspecified Status: Acute Assessment and Plan: Chronic intermittent constipation for which patient takes colace, last BM 05/17. -KUB showed no acute abnormality -s/p soapsuds enema x1 on admission -continue Colace, MiraLax daily -schedule Reglan -Zofran p.r.n. KUB showed no impaction or obstruction and patient stated nausea had improved and no longer having vomiting. Benign abdominal exam. Attempted to advance diet to full liquid diet however per RN patient again developed vomiting. Patient again made NPO, started on LR 100 ml/hr with accu checks q6h. CT abdomen/pelvis ordered to further assess. (4) Hypertension: Qualifiers: Hypertension type: primary hypertension Qualified Code(s): I10 - Essential (primary) hypertension Code(s): I10 - Essential (primary) hypertension Status: Chronic Assessment and Plan: Chronic, continue home medications - hydralazine 50 mg BID, losartan 100 mg daily, nifedipine 30 mg daily - holding HCTZ 25 mg daily for hyponatremia - blood pressures reviewed and remain stable, continue to monitor (5) Vestibular schwannoma: Code(s): D33.3 - Benign neoplasm of cranial nerves Status: Chronic Assessment and Plan: history of left-sided vestibular schwannoma s/p excision in 2019 at [facility] with serial MRIs Time Spent With Patient Time with patient: 25 - 35 minutes Subjective Date/time seen: 05/21/25 08:00 Interval history: 80-year-old female past medical history of left-sided vestibular schwannoma s/p excision in 2019 at [facility], HTN, hyperlipidemia, GERD presents to the hospital with her family on 05/20/2025 for increased altered mental status and word finding difficulties. Patient is pleasant lying comfortably in bed. She is AOx3 on assessment but notes to still occasionally have trouble word finding with further discussion. She states that her nausea has much improved and denies any vomiting or abdominal pain. She has no other complaints denying chest pain, palpitations, and shortness of breath. Returned to patients room to discuss with . He states that patient appears to have returned to her baseline mental status. Received call from RN that patient started vomiting following the fulll liquid diet attempt. Patient made NPO and CT abdomen/pelvis ordered. Review of Systems Review of Systems: All systems reviewed & are unremarkable except as noted in HPI and below Exam Narrative: AF HR 59 RR 16 Spo2 96 BP 156/60 General: female in no acute respiratory distress who is nontoxic appearing, lying semi recumbent in bed. HEENT: Normocephalic. Atraumatic. Extraocular movement intact. Sclera clear and anicteric. No facial asymmetry. Chest: Lungs are clear to auscultation bilaterally. No wheezes or crackles. CV: Heart was regular rate and rhythm. S1-S2. No murmurs, gallops, or rubs. Abd: Abdomen was soft. Nontender. Nondistended. Positive bowel sounds. Ext: No clubbing, cyanosis, or edema. DP pulses bilaterally. Neuro: Patient is alert and oriented x3. Strength is 5/5 in both upper and lower extremities. Cranial nerves 2-12 are intact. Speech is clear with occasional aphasia. Objective Data Vital Signs Vital Signs: Vital Signs - 24 hr 05/20/25 08:31 05/20/25 09:00 05/20/25 09:44 Temperature Pulse Rate 69 66 64 Respiratory Rate 16 10 L 15 Blood Pressure 171/74 H 174/64 H 154/51 H Pulse Oximetry 98 98 98 Oxygen Delivery 05/20/25 10:02 05/20/25 11:45 05/20/25 13:18 Temperature Pulse Rate 62 60 89 Respiratory Rate 13 16 11 L Blood Pressure 146/54 H 131/49 L 186/60 H Pulse Oximetry 98 96 98 Oxygen Delivery 05/20/25 14:17 05/20/25 15:00 05/20/25 16:00 Temperature Pulse Rate 62 65 63 Respiratory Rate 16 11 L Blood Pressure 178/60 H 166/66 H Pulse Oximetry 96 100 Oxygen Delivery 05/20/25 16:00 05/20/25 16:00 05/20/25 20:00 Temperature 98.3 F Pulse Rate 63 Respiratory Rate 16 Blood Pressure 180/67 H Pulse Oximetry 99 Oxygen Delivery Room Air Room Air 05/20/25 20:00 05/20/25 20:02 05/20/25 20:35 Temperature 97.7 F Pulse Rate 65 61 69 Respiratory Rate 16 Blood Pressure 158/57 H Pulse Oximetry 97 Oxygen Delivery 05/21/25 00:00 05/21/25 04:00 05/21/25 05:46 Temperature 99.1 F Pulse Rate 71 73 68 Respiratory Rate 16 Blood Pressure 156/60 H Pulse Oximetry 97 Oxygen Delivery Intake/Output Intake/Output: Intake & Output 05/18/25 05/19/25 05/20/25 05/21/25 23:59 23:59 23:59 23:59 Intake Total 1240 Output Total 100 Balance 1140 Meds/Results Medications: Active Medications Generic Name Dose Route Start Last Admin Trade Name Freq PRN Reason Stop Dose Admin Acetaminophen 650 mg 05/20/25 17:30 05/20/25 21:07 Acetaminophen 325 Mg Tablet PO 650 mg Q6H PRN Administration Mild Pain (1-3) or Fever Carvedilol 6.25 mg 05/20/25 21:00 05/20/25 20:02 Carvedilol 6.25 Mg Tablet PO 6.25 mg Q12HR HARVEY Administration Diazepam 10 mg 05/20/25 17:38 Diazepam (*Crx) 5 Mg Tablet PO Q6H PRN Anxiety Docusate Sodium 100 mg 05/20/25 17:44 05/20/25 20:02 Docusate Sodium 100 Mg Capsule PO 100 mg Q12H PRN Administration Constipation Duloxetine HCl 20 mg 05/21/25 09:00 Duloxetine Hcl 20 Mg Capsule.Dr PO DAILY HARVEY Enoxaparin Sodium 40 mg 05/20/25 21:00 05/20/25 20:03 Enoxaparin 40 Mg/0.4 Ml Syringe SUB-Q 40 mg HS HARVEY Administration Fluticasone Propionate 2 spray 05/21/25 09:00 Fluticasone Propionate 0.05% Na Spr 16 Gm Btl (*Bkc) NASAL DAILY AHRVEY Hydralazine HCl 50 mg 05/20/25 21:00 05/20/25 20:02 Hydralazine Hcl 50 Mg Tablet PO 50 mg Q12HR HARVEY Administration Hydrochlorothiazide 25 mg 05/21/25 09:00 Hydrochlorothiazide 25 Mg Tablet PO DAILY HARVEY Losartan Potassium 100 mg 05/21/25 09:00 Losartan Potassium 100 Mg Tablet PO DAILY HARVEY Metoclopramide HCl 5 mg 05/21/25 00:00 05/21/25 05:08 Metoclopramide Hcl Inj 10 Mg/2 Ml Vial IV PUSH 5 mg Q6HR HARVEY Administration Nifedipine 30 mg 05/21/25 09:00 Nifedipine 30 Mg Tab.Er.24 PO DAILY HARVEY Ondansetron HCl 4 mg 05/20/25 17:32 05/20/25 21:14 Ondansetron Inj 4 Mg/2 Ml Vial IV PUSH 4 mg Q4H PRN Administration Nausea And Vomiting Pantoprazole Sodium 40 mg 05/21/25 09:00 Pantoprazole 40 Mg Tablet PO BID HARVEY Perflutren Lipid Microsphere 0 ml 05/20/25 23:07 Perflutren Lipid Microspheres 1.5 Ml Vial Diluted To 10 Ml Total Volume IV PUSH 05/23/25 23:07 ONCE PRN adequate visualization Protocol Polyethylene Glycol 17 gm 05/20/25 22:40 05/20/25 23:26 Polyethylene Glycol 3350 17 Gm Powd.Pack PO 17 gm QAM HARVEY Administration Rosuvastatin Calcium 20 mg 05/20/25 21:00 05/20/25 20:02 Rosuvastatin 20 Mg Tablet PO 20 mg HS HARVEY Administration Radiology Results: ITS Impressions Head CT 05/20/25 07:23 IMPRESSION: 1. No acute intracranial findings. Chest X-Ray 05/20/25 08:29 IMPRESSION: 1. Portable chest x-ray with no focal acute process. Head/Neck CTA 05/20/25 09:16 IMPRESSION: CTA NECK: 1. No acute findings. CTA HEAD: 1. No acute findings. Abdomen X-Ray 05/21/25 07:44 IMPRESSION: 1. No acute abnormality. Labs Labs: Laboratory Results - last 24 hr 05/20/25 05/21/25 07:30 04:30 WBC 12.0 H RBC 4.62 Hgb 13.7 Hct 38.5 MCV 83.3 MCH 29.7 MCHC 35.6 RDW 11.7 Plt Count 197 MPV 12.7 H Immature Gran % (Auto) 0.7 H Neut % (Auto) 87.3 H Lymph % (Auto) 9.1 L Pine % (Auto) 2.6 Eos % (Auto) 0.0 Baso % (Auto) 0.3 Lymph # (Auto) 1.09 Pine # (Auto) 0.3 Eos # (Auto) 0.0 Baso # (Auto) 0.0 Abs Immat Gran (auto) 0.08 H Absolute Neuts (auto) 10.5 H Absolute Nucleated RBC 0.000 Nucleated RBC % 0.0 Sodium 121 L Potassium 3.8 Chloride 89 L Carbon Dioxide 24 Anion Gap 8 BUN 12 Creatinine 0.61 L Estim Creat Clear Calc 54 Estimated GFR > 60 Glucose 133 H Hemoglobin A1c 5.5 Calcium 8.6 Triglycerides 68 Cholesterol 121 LDL Cholesterol Direct 55 HDL Direct 49 Influenza A (RT-PCR) Negative Influenza B (RT-PCR) Negative RSV (RT-PCR) Negative SARS-CoV-2 RNA (RT-PCR) Negative Quality VTE Prophylaxis VTE prophylaxis: pharmacologic ordered
[2025-05-21] MEDS: PANTOPRAZOLE 40 MG TABLET PO ×2 (08:31→18:13)
[2025-05-21] MEDS: LOSARTAN POTASSIUM 100 MG TABLET PO (08:31)
[2025-05-21] MEDS: DOCUSATE SODIUM 100 MG CAPSULE PO (08:31)
[2025-05-21] MEDS: ONDANSETRON INJ 4 MG/2 ML VIAL IV PUSH (08:35)
[2025-05-21] MEDS: FLUTICASONE PROPIONATE 0.05% NA SPR 16 GM BTL (*BKC) 2 SPRAY NASAL (08:40)
[2025-05-21 09:29] LABS: Thyroid Stimulating Hormone Reflex 1.840 uIU/mL (0.465-4.68)
--- NOTE | 2025-05-21 10:19 | WPDNEURCNPN ---
Assessment and Plan Assessment and plan (1) Hyponatremia: Code(s): E87.1 - Hypo-osmolality and hyponatremia Status: Acute (2) Altered mental status: Qualifiers: Altered mental status type: unspecified Qualified Code(s): R41.82 - Altered mental status, unspecified Code(s): R41.82 - Altered mental status, unspecified Status: Acute Plan 1. Status post craniotomy for the excision of the brain tumor at [facility] 2. Recent complaint of increasing alteration in the mental status with medication as outlined, rule out the possibility of unwitnessed seizure. Plan is to obtain the EEG , CT of the head and neck has been done with no involvement of any medium-sized blood vessels or any aneurysm or bleed. MRI is awake to rule out the possibility of his stroke versus any metastatic disease. Consult date: 05/21/25 HPI: Jodee Acosta is a 80 year old female admitted to the hospital through emergency room for the complaints of change in the mental status and with the information that she was fine last going to the bed but appeared increasingly more confused with word-finding difficulties subsequently. Patient does have ongoing history of brain tumor removal about 4 years ago at [facility] where she has been following up regularly and most recently was scheduled to have an MRI of the brain. Patient has no history of ongoing epilepsy, and she has been taking multiple medications as outlined particularly including carvedilol 6.25mg q.12 hours, duloxetine 20mg daily, hydralazine 50mg b.i.d., hydrochlorothiazide 25mg daily, losartan 100mg daily, nifedipine 30mg daily, rosuvastatin 20mg at night, and omeprazole 25mg daily, she is documented to be allergic to quinolones, she is former smoker by history with no alcohol intake, and her initial exam in the ER was unremarkable except the blood pressure 190/69 though she was afebrile, CBC was normal BMP with sodium only 122 when potassium 4.2 in addition to chloride is only 88 the blood sugar was 135, mast scan was negative, his screening for influenza a, influenza B RSV, SARs COVID negative x-ray chest revealed no acute panic I matter disease, CT scan of the head revealed no bleed, CTA of the head and neck was normal, subsequently she has had the MRI of the brain which documents 4mm enhancing mass at the left shannon, Review of Systems Review of Systems: All systems reviewed & are unremarkable except as noted in HPI and below PMFSH Past Medical History Medical History Vestibular schwannoma Hypertension Hyperlipidemia Family History Family History Father Acute myocardial infarction Mother Hypertension Social History Social History Smoking status: Former smoker Alcohol intake: never Substance use: never Lack of Transportation: No Lack of Food: Never True Current Housing: I Have Housing Concerned About Future Housing: No Difficulty Paying Gas/Electric Bills: No Difficulty Paying for Meds: No Currently Unemployed: No Education: High School Diploma/GED Difficulty w/ Childcare or Family Care: No Spiritual care concerns: No Meds Home Medications and Allergies Home Medications ?Medication ?Instructions ?Recorded ?Confirmed ?Type carvedilol 6.25 mg tablet 6.25 mg PO Q12H 05/20/25 05/20/25 History diazepam 10 mg tablet 10 mg PO Q6H PRN anxiety 05/20/25 05/20/25 History duloxetine 20 mg capsule,delayed 20 mg PO HS 05/20/25 05/21/25 History release estradiol 0.01% (0.1 mg/gram) 1 g vaginal .COMPLEX 05/20/25 05/20/25 History vaginal cream fluticasone propionate 50 2 spray intranasal DAILY 05/20/25 05/20/25 History mcg/actuation nasal spray,suspension hydralazine 50 mg tablet 50 mg PO BID 05/20/25 05/21/25 History Held on 05/21/25. Instructions: Patient no longer taking hydrochlorothiazide 25 mg tablet 25 mg PO DAILY 05/20/25 05/21/25 History Held on 05/21/25. Instructions: Order Change losartan 100 mg tablet 100 mg PO DAILY 05/20/25 05/20/25 History nifedipine 30 mg tablet,extended 30 mg PO DAILY 05/20/25 05/20/25 History release omeprazole 20 mg capsule,delayed 20 mg PO BID 05/20/25 05/20/25 History release rosuvastatin 20 mg tablet 20 mg PO DAILY 05/20/25 05/21/25 History calcium carbonate-vitamin D3 600 1 tablet PO BID 05/21/25 05/21/25 History mg calcium-200 unit chewable tablet psyllium husk 3.4 gram oral powder 3.4 g PO DAILY 05/21/25 05/21/25 History packet (Daily Fiber (psyllium-aspartame)) Allergies Allergy/AdvReac Type Severity Reaction Status Date / Time azithromycin Allergy Unknown Verified 05/21/25 10:09 methylprednisolone Allergy Unknown Verified 05/21/25 10:09 metoprolol Allergy Rash Verified 05/21/25 10:09 Quinolones Allergy Unknown Verified 05/21/25 10:09 amlodipine AdvReac edema Verified 05/21/25 10:11 ciprofloxacin AdvReac Nausea Verified 05/21/25 10:10 nebivolol AdvReac Palpitation Verified 05/21/25 10:10 s sulfamethoxazole (From AdvReac Nausea Verified 05/21/25 10:10 Bactrim) trimethoprim (From Bactrim) AdvReac Nausea Verified 05/21/25 10:10 Vital Signs Vital Signs - 24 hr 05/20/25 11:45 05/20/25 13:18 05/20/25 14:17 Temperature Pulse Rate 60 89 62 Respiratory Rate 16 11 L 16 Blood Pressure 131/49 L 186/60 H 178/60 H Pulse Oximetry 96 98 96 Oxygen Delivery 05/20/25 15:00 05/20/25 16:00 05/20/25 16:00 Temperature Pulse Rate 65 63 Respiratory Rate 11 L Blood Pressure 166/66 H Pulse Oximetry 100 Oxygen Delivery Room Air 05/20/25 16:00 05/20/25 20:00 05/20/25 20:00 Temperature 36.8 C Pulse Rate 63 65 Respiratory Rate 16 Blood Pressure 180/67 H Pulse Oximetry 99 Oxygen Delivery Room Air 05/20/25 20:02 05/20/25 20:35 05/21/25 00:00 Temperature 36.5 C Pulse Rate 61 69 71 Respiratory Rate 16 Blood Pressure 158/57 H Pulse Oximetry 97 Oxygen Delivery 05/21/25 04:00 05/21/25 05:46 05/21/25 08:30 Temperature 37.3 C Pulse Rate 73 68 Respiratory Rate 16 Blood Pressure 156/60 H Pulse Oximetry 97 Oxygen Delivery Room Air 05/21/25 08:31 05/21/25 08:44 Temperature Pulse Rate 76 Respiratory Rate Blood Pressure Pulse Oximetry 96 Oxygen Delivery Room Air Exam Narrative: revealed her to be drowsy in no obvious acute distress, head without any signs of trauma normocephalic, ear nose throat examination normal, neck supple with no cervical bruit no thyromegaly no lymphadenopathy, heart regular with no murmur, lungs clear to auscultation, abdomen soft nontender with normal bowel sounds, neurologically she is arousable with no spontaneous speech pupils round regular she has the vision full, extraocular movements spontaneously full with no nystagmus, facial grimace symmetrical, motor examination her to have no spontaneous abnormal movements his strength for decreased reflexes were symmetrical and plantars were downgoing cerebellar function could not be reliably checked. Results Labs 05/21/25 04:30 05/21/25 04:30 Labs: Short CBC 05/21/25 Range/Units 04:30 WBC 12.0 H (4.5-10.0) K/mm3 Hgb 13.7 (12.0-15.0) g/dL Hct 38.5 (37.0-47.0) % Plt Count 197 (150-375) k/mm3 [facility] 05/21/25 04:30 Sodium 121 L Potassium 3.8 Chloride 89 L Carbon Dioxide 24 BUN 12 Creatinine 0.61 L Glucose 133 H Calcium 8.6
--- NOTE | 2025-05-21 11:15 | PM.CNNEP ---
Assessment and Plan Assessment and plan (1) Hyponatremia: Code(s): E87.1 - Hypo-osmolality and hyponatremia Status: Acute Assessment and Plan: seems to be acute on chronic outpatient labs in October 2024 with a sodium of 131mmol/L admission sodium noted at 122mmol/L several risk factors for low sodium medications - duloxetine - hydrochlorothiazide - omeprazole (PPI) excessive free water intake nausea/vomiting other(?) evaluation to date noted urine electrolytes prerenal TSH okay cortisol level good serum/urine osmolality pending SPEP/UPEP pending CXR negative Head CT negative hold HCTZ consider trial of IVFs follow trend of repeat sodium levels (2) Altered mental status: Qualifiers: Altered mental status type: unspecified Qualified Code(s): R41.82 - Altered mental status, unspecified Code(s): R41.82 - Altered mental status, unspecified Status: Acute Assessment and Plan: clinically better at this time Neurology recommendations noted neuro imaging noted to date MRI brain and EEG ordered (3) Nausea & vomiting: Code(s): R11.2 - Nausea with vomiting, unspecified Status: Acute Assessment and Plan: noted prior to admission maybe playing a role with #1 advance diet and follow trend (4) Hypertension: Qualifiers: Hypertension type: primary hypertension Qualified Code(s): I10 - Essential (primary) hypertension Code(s): I10 - Essential (primary) hypertension Status: Chronic Assessment and Plan: reasonable control holding HCTZ due to #1 follow trend of hemodynamics I will continue to follow the patient with you while he remains hospitalized and make further recommendations as deemed necessary. Thank you for allowing me to participate in the care of this patient. History of Present Illness Reason for Consult Consult date: 05/21/25 Reason for consult: hyponatremia Chief Complaint Chief complaint: altered mental status,dysphasia History of Present Illness Narrative: The patient is a 80-year-old female with a past medical history as outlined presented to [facility] ER with altered mental status. Her family states that the patient is seemed altered and clearly not at kiara baselinel. They state the patient was her normal self when she went to bed but seemed more confused the morning of admission and that she had some word-finding difficulty. Patient had a history of a vestibular schwannoma excised in 2019 at [place]. She continues to follow-up with [facility] and has serial MRIs to monitor it. Per family, patient has no seizure history. Patient is forgetful and is somewhat of a poor historian when seen in the ER. She denies fevers, chest pain, cough, vision changes. Patient states she did have a bout of nausea and vomiting a few days ago. She states she has constipation at times which she takes Colace for. Evaluation in the ER demonstrated the patient to be hemodynamically stable ( if not a bit hypertensive with a systolic BP in 190s) otherwise afebrile. Labs were significant for WBC 10.6, sodium 122, chloride 88, creatinine 0.59, glucose 135, and an UA without signs of infection. Viral panel negative. ECG with normal sinus rhythm. Head CT with no acute intracranial findings. Chest x-ray with no acute process. CTA head neck with no acute findings. it was noted that while she was in the ER, mental status slowly improved almost back to baseline. However, given her symptoms and low sodium level, she was admitted for further evaluation and therapy. Since her admission her sodium level remains relatively unchanged with IV fluids. Neurology has been consulted and extensive workup has been initiated with regard to her altered mentation but, as already mentioned, she appears to be back to baseline. Renal consultation was requested due to her acute on chronic hyponatremia. I have no previous labs in the [place] system to compare to with regard to her baseline sodium level but I was able to get records from her primary care physician's office that demonstrated that her sodium levels around 131 millimoles per L in October 2024. Hence, it would seem that she has some degree of baseline hyponatremia that seems to have acutely worsened as noted by her admission labs. She is on hydrochlorothiazide which is well known to cause low sodium level and but she cannot tell me how long she has been on this medication or this was a new addition. Furthermore, she apparently is a significant water drinker as detailed by her at bedside. Is difficult to say if her altered mental status was related to her sodium level as it clinically improved while she was in the ER when her sodium level remained about the same. Currently, the time my evaluation, she appears to be in no acute distress Review of Systems Review of Systems: As per HPI. [facility] Past Medical History Medical History Vestibular schwannoma Hypertension Hyperlipidemia Family History Family History Father Acute myocardial infarction Mother Hypertension Social History Social History Smoking status: Former smoker Alcohol intake: never Substance use: never Lack of Transportation: No Lack of Food: Never True Current Housing: I Have Housing Concerned About Future Housing: No Difficulty Paying Gas/Electric Bills: No Difficulty Paying for Meds: No Currently Unemployed: No Education: High School Diploma/GED Difficulty w/ Childcare or Family Care: No Spiritual care concerns: No Meds Home Medications and Allergies Home Medications ?Medication ?Instructions ?Recorded ?Confirmed ?Type carvedilol 6.25 mg tablet 6.25 mg PO Q12H 05/20/25 05/20/25 History diazepam 10 mg tablet 10 mg PO Q6H PRN anxiety 05/20/25 05/20/25 History duloxetine 20 mg capsule,delayed 20 mg PO HS 05/20/25 05/21/25 History release estradiol 0.01% (0.1 mg/gram) 1 g vaginal .COMPLEX 05/20/25 05/20/25 History vaginal cream fluticasone propionate 50 2 spray intranasal DAILY 05/20/25 05/20/25 History mcg/actuation nasal spray,suspension hydralazine 50 mg tablet 50 mg PO BID 05/20/25 05/21/25 History Held on 05/21/25. Instructions: Patient no longer taking hydrochlorothiazide 25 mg tablet 25 mg PO DAILY 05/20/25 05/21/25 History Held on 05/21/25. Instructions: Order Change losartan 100 mg tablet 100 mg PO DAILY 05/20/25 05/20/25 History nifedipine 30 mg tablet,extended 30 mg PO DAILY 05/20/25 05/20/25 History release omeprazole 20 mg capsule,delayed 20 mg PO BID 05/20/25 05/20/25 History release rosuvastatin 20 mg tablet 20 mg PO DAILY 05/20/25 05/21/25 History calcium carbonate-vitamin D3 600 1 tablet PO BID 05/21/25 05/21/25 History mg calcium-200 unit chewable tablet psyllium husk 3.4 gram oral powder 3.4 g PO DAILY 05/21/25 05/21/25 History packet (Daily Fiber (psyllium-aspartame)) Allergies Allergy/AdvReac Type Severity Reaction Status Date / Time azithromycin Allergy Unknown Verified 05/21/25 10:09 methylprednisolone Allergy Unknown Verified 05/21/25 10:09 metoprolol Allergy Rash Verified 05/21/25 10:09 Quinolones Allergy Unknown Verified 05/21/25 10:09 amlodipine AdvReac edema Verified 05/21/25 10:11 ciprofloxacin AdvReac Nausea Verified 05/21/25 10:10 nebivolol AdvReac Palpitation Verified 05/21/25 10:10 s sulfamethoxazole (From AdvReac Nausea Verified 05/21/25 10:10 Bactrim) trimethoprim (From Bactrim) AdvReac Nausea Verified 05/21/25 10:10 Vital Signs Vital Signs Temp Pulse Resp BP Pulse Ox O2 Del Method 05/21/25 08:44 96 Room Air 05/21/25 08:31 76 05/21/25 08:30 Room Air 05/21/25 08:00 66 05/21/25 05:46 99.1 F 68 16 156/60 H 97 05/21/25 04:00 73 05/21/25 00:00 71 05/20/25 20:35 97.7 F 69 16 158/57 H 97 05/20/25 20:02 61 05/20/25 20:00 65 05/20/25 20:00 Room Air Exam Narrative: GENERAL APPEARANCE: elderly but well developed well nourished female in no acute distress HEENT: normocephalic, atraumatic, normal conjunctiva and sclera, nares patient NECK: no lymphadenopathy, thyromegaly, or JVD MOUTH: normal lips, teeth, and gums CARDIOVASCULAR: RRR, normal S1 and S2, no rub RESPIRATORY: clear to auscultation bilaterally ABDOMEN: soft, nontender, nondistended, positive bowel sounds present EXTREMITIES: no evidence of cyanosis, clubbing, or edema NEUROLOGICAL: alert and oriented x 3; CN II - XII intact bilaterally; no focal deficits noted Results Lab Results 05/25/25 04:21 05/25/25 04:21 Lab results: Most recent lab results Calcium 8.6 mg/dL (8.4-10.2) 05/21/25 04:30 Urine Creatinine 155.9 mg/dL 05/21/25 11:16
[2025-05-21 12:20] LABS: Total Protein Urine Random 24 mg/dL; Ur Ttl Prot Creatinine Ratio 0.15 mg/mg (0-0.20)
[2025-05-21] MEDS: ASPIRIN 81 MG ENTERIC TABLET PO (14:05)
[2025-05-21] MEDS: CLOPIDOGREL BISULFATE 75 MG TABLET PO (14:05)
[2025-05-21] MEDS: LACTATED RINGERS 1,000 ML 100 ML IV CONT (14:06)
[2025-05-21] MEDS: BISACODYL 10 MG SUPPOSITORY RECTAL (18:14)
[2025-05-21 18:22] LABS: Sodium 120 mmol/L (137-145)
[2025-05-21] MEDS: ENOXAPARIN 40 MG/0.4 ML SYRINGE SUB-Q (20:40)
[2025-05-21] MEDS: ROSUVASTATIN 20 MG TABLET PO (20:41)
[2025-05-21 20:57] LABS: Sodium 120 mmol/L (137-145)
[2025-05-22] VITALS (12 sets, daily range): BP systolic 116–144; BP diastolic 47–54; PULSE 55–63; RESP 16–20; TEMP 36.5–37; O2SAT 97–98; BMI 22.0
[2025-05-22 03:00] LABS: Hematocrit 38.0 % (37.0-47.0); Hemoglobin 13.6 g/dL (12.0-15.0); Mean Corpuscular HGB Conc 35.8 g/dl (32-36); Mean Corpuscular Hemoglobin 29.6 pg (26-34); Mean Corpuscular Volume 82.8 fl (80-100); Platelet Count Result 173 k/mm3 (150-375); Red Blood Count 4.59 M/mm3 (4.2-5.4); White Blood Count 10.4 K/mm3 (4.5-10.0)
[2025-05-22 03:13] LABS: Alanine Aminotransferase 19 U/L (6-35); Albumin Level 4.2 g/dL (3.5-5.1); Alkaline Phosphatase 47 U/L (38-126); Anion Gap 7 mmol/L (4-12); Aspartate Amino Transferase 34 U/L (14-36); Bilirubin,Total 1.2 mg/dL (0.2-1.3); Blood Urea Nitrogen 14 mg/dL (7-17); Calcium 8.4 mg/dL (8.4-10.2); Carbon Dioxide 26 mmol/L (22-30); Chloride 89 mmol/L (98-107); Estimated CRCL calculation 49 ml/min; Estimated Glomerular Filt Rate > 60; Glucose 116 mg/dL (65-110); Potassium 3.6 mmol/L (3.4-5.0); Sodium 122 mmol/L (137-145); Total Protein 6.9 g/dL (6.3-8.2)
[2025-05-22] MEDS: METOCLOPRAMIDE HCL INJ 10 MG/2 ML VIAL 5 MG IV PUSH ×3 (05:17→17:29)
[2025-05-22] MEDS: diazePAM (*CRX) 5 MG TABLET 10 MG PO (06:54)
[2025-05-22 08:13] LABS: Anion Gap 6 mmol/L (4-12); Blood Urea Nitrogen 16 mg/dL (7-17); Calcium 8.2 mg/dL (8.4-10.2); Carbon Dioxide 25 mmol/L (22-30); Chloride 89 mmol/L (98-107); Estimated CRCL calculation 50 ml/min; Estimated Glomerular Filt Rate > 60; Glucose 106 mg/dL (65-110); Potassium 3.2 mmol/L (3.4-5.0); Sodium 120 mmol/L (137-145)
--- NOTE | 2025-05-22 08:21 | P.PNIM_ITS ---
Progress Note: A&P Assessment and Plan (1) Altered mental status: Qualifiers: Altered mental status type: unspecified Qualified Code(s): R41.82 - Altered mental status, unspecified Code(s): R41.82 - Altered mental status, unspecified Status: Acute Assessment and Plan: Family states that the patient has increased altered mental status and word finding difficulties. Possibly related to TIA vs CVA vs Hyponatremia vs Seizure - Lipid panel WNL, continue high intensity statin with rosuvastatin 20 mg daily - Head CT and Head/neck CTA were unremarkable - MRI ordered - Echo ordered - Initiate stroke protocol, NIH Stroke Scale, neuro's q.4 hours - Monitor CBC, CMP, magnesium, troponin, and lipid profile - Monitor blood pressure, allow for permissive hypertension. - Telemetry monitoring - Monitor blood glucose - PT/OT eval and treat - Consider speech therapy - Neurology consulted, appreciate assistance and recommendations EEG ordered Started on asa 81 mg daily and plavix 75 mg daily for 21 days Discussed patient with neurology Dr. Downey who agrees with starting patient on asa and plavix at this time. Patient is AOx3 however occasional aphasia noted on exam. Per back to baseline. neurology following eeg recommended (2) Hyponatremia: Code(s): E87.1 - Hypo-osmolality and hyponatremia Status: Acute Assessment and Plan: - Na 122 on admission, received 1L bolus LR in the ED and Na 121 on am labs. No prior labs to compare. - Holding HCTZ - add urine osmolality, serum osmolality, and urine sodium - if euvolemic rule out SIDAH 2/2 SCLC with chest xr: unremarkable adrenal insufficiency: cortisol and TSH - nephrology consulted and following (3) Nausea & vomiting: Code(s): R11.2 - Nausea with vomiting, unspecified Status: Acute Assessment and Plan: Chronic intermittent constipation for which patient takes colace, last BM 05/17. -KUB showed no acute abnormality -s/p soapsuds enema x1 on admission -continue Colace, MiraLax daily -schedule Reglan -Zofran p.r.n. KUB showed no impaction or obstruction and patient stated nausea had improved and no longer having vomiting. Benign abdominal exam. Attempted to advance diet to full liquid diet however per RN patient again developed vomiting. Patient again made NPO, started on LR 100 ml/hr with accu checks q6h. CT abdomen/pelvis ordered to further assess. (4) Hypertension: Qualifiers: Hypertension type: primary hypertension Qualified Code(s): I10 - Essential (primary) hypertension Code(s): I10 - Essential (primary) hypertension Status: Chronic Assessment and Plan: Chronic, continue home medications - hydralazine 50 mg BID, losartan 100 mg daily, nifedipine 30 mg daily - holding HCTZ 25 mg daily for hyponatremia - blood pressures reviewed and remain stable, continue to monitor (5) Vestibular schwannoma: Code(s): D33.3 - Benign neoplasm of cranial nerves Status: Chronic Assessment and Plan: history of left-sided vestibular schwannoma s/p excision in 2019 at [facility] with serial MRIs Time Spent With Patient Time with patient: 25 - 35 minutes Subjective Date/time seen: 05/22/25 08:21 Interval history: 80-year-old female past medical history of left-sided vestibular schwannoma s/p excision in 2019 at [facility], HTN, hyperlipidemia, GERD presents to the hospital with her family on 05/20/2025 for increased altered mental status and word finding difficulties. Pt is seen and examined. nephrology and neurology following. she is a/o x 3. denies any acute concerns at this time. no chest pain, no sob. Review of Systems Review of Systems: All systems reviewed & are unremarkable except as noted in HPI and below Exam Narrative: General: female in no acute respiratory distress who is nontoxic appearing, lying semi recumbent in bed. HEENT: Normocephalic. Atraumatic. Extraocular movement intact. Sclera clear and anicteric. No facial asymmetry. Chest: Lungs are clear to auscultation bilaterally. No wheezes or crackles. CV: Heart was regular rate and rhythm. S1-S2. No murmurs, gallops, or rubs. Abd: Abdomen was soft. Nontender. Nondistended. Positive bowel sounds. Ext: No clubbing, cyanosis, or edema. DP pulses bilaterally. Neuro: Patient is alert and oriented x3. Strength is 5/5 in both upper and lower extremities. Cranial nerves 2-12 are intact. Speech is clear with occasional aphasia. Const: General: comfortable Objective Data Vital Signs Vital Signs: Vital Signs - 24 hr 05/21/25 08:30 05/21/25 08:31 05/21/25 08:44 Temperature Pulse Rate 76 Respiratory Rate Blood Pressure Pulse Oximetry 96 Oxygen Delivery Room Air Room Air 05/21/25 12:00 05/21/25 14:00 05/21/25 16:00 Temperature 99.0 F Pulse Rate 59 L 76 69 Respiratory Rate 16 Blood Pressure 149/61 H Pulse Oximetry 96 Oxygen Delivery 05/21/25 19:56 05/21/25 20:00 05/21/25 20:00 Temperature 98.0 F Pulse Rate 64 66 Respiratory Rate 20 Blood Pressure 138/47 L Pulse Oximetry 97 Oxygen Delivery Room Air 05/21/25 20:41 05/22/25 00:00 05/22/25 04:00 Temperature Pulse Rate 66 62 63 Respiratory Rate Blood Pressure Pulse Oximetry Oxygen Delivery 05/22/25 04:24 Temperature 98.6 F Pulse Rate 63 Respiratory Rate 20 Blood Pressure 126/54 L Pulse Oximetry 98 Oxygen Delivery Intake/Output Intake/Output: Intake & Output 05/19/25 05/20/25 05/21/25 05/22/25 23:59 23:59 23:59 23:59 Intake Total 1240 200 Output Total 100 150 Balance 1140 50 Meds/Results Medications: Active Medications Generic Name Dose Route Start Last Admin Trade Name Freq PRN Reason Stop Dose Admin Acetaminophen 650 mg 05/20/25 17:30 05/20/25 21:07 Acetaminophen 325 Mg Tablet PO 650 mg Q6H PRN Administration Mild Pain (1-3) or Fever Aspirin 81 mg 05/21/25 13:50 05/21/25 14:05 Aspirin 81 Mg Enteric Tablet PO 81 mg QAM HARVEY Administration Carvedilol 6.25 mg 05/20/25 21:00 05/21/25 20:41 Carvedilol 6.25 Mg Tablet PO 6.25 mg Q12HR HARVEY Administration Clopidogrel Bisulfate 75 mg 05/21/25 13:50 05/21/25 14:05 Clopidogrel Bisulfate 75 Mg Tablet PO 75 mg QAM HARVEY Administration Dextrose 12.5 gm 05/21/25 13:30 Dextrose 50% 25 Gm/50 Ml Syringe IV PUSH PRN PRN Hypoglycemia Protocol Diazepam 10 mg 05/20/25 17:38 11/19/25 06:54 Diazepam (*Crx) 5 Mg Tablet PO 10 mg Q6H PRN Administration Anxiety Docusate Sodium 100 mg 05/20/25 17:44 05/21/25 08:31 Docusate Sodium 100 Mg Capsule PO 100 mg Q12H PRN Administration Constipation Duloxetine HCl 20 mg 05/21/25 09:00 05/21/25 08:31 Duloxetine Hcl 20 Mg Capsule.Dr PO 20 mg DAILY HARVEY Administration Enoxaparin Sodium 40 mg 05/20/25 21:00 05/21/25 20:40 Enoxaparin 40 Mg/0.4 Ml Syringe SUB-Q 40 mg HS HARVEY Administration Fluticasone Propionate 2 spray 05/21/25 09:00 05/21/25 08:40 Fluticasone Propionate 0.05% Na Spr 16 Gm Btl (*Bkc) NASAL 2 spray DAILY HARVEY Administration Glucagon 1 mg 05/21/25 13:30 Glucagon For Inj 1 Mg Vial IM PRN PRN Hypoglycemia Protocol Glucose 15 gm 05/21/25 13:30 Glucose Oral Gel 15 Gm Of Glucse In 37.5 Gm Tube PO PRN PRN Hypoglycemia Protocol Hydralazine HCl 50 mg 05/20/25 21:00 05/21/25 20:41 Hydralazine Hcl 50 Mg Tablet PO 50 mg Q12HR HARVEY Administration Dextrose 1,000 mls @ 100 mls/hr 05/21/25 13:30 Dextrose 5% 1,000 Ml IVPB PRN PRN Hypoglycemia Protocol Losartan Potassium 100 mg 05/21/25 09:00 05/21/25 08:31 Losartan Potassium 100 Mg Tablet PO 100 mg DAILY HARVEY Administration Metoclopramide HCl 5 mg 05/21/25 00:00 05/22/25 05:17 Metoclopramide Hcl Inj 10 Mg/2 Ml Vial IV PUSH 5 mg Q6HR HARVEY Administration Nifedipine 30 mg 05/21/25 09:00 05/21/25 08:31 Nifedipine 30 Mg Tab.Er.24 PO 30 mg DAILY HARVEY Administration Ondansetron HCl 4 mg 05/20/25 17:32 05/21/25 08:35 Ondansetron Inj 4 Mg/2 Ml Vial IV PUSH 4 mg Q4H PRN Administration Nausea And Vomiting Pantoprazole Sodium 40 mg 05/21/25 09:00 05/21/25 18:13 Pantoprazole 40 Mg Tablet PO 40 mg BID HARVEY Administration Perflutren Lipid Microsphere 0 ml 05/20/25 23:07 Perflutren Lipid Microspheres 1.5 Ml Vial Diluted To 10 Ml Total Volume IV PUSH 05/23/25 23:07 ONCE PRN adequate visualization Protocol Polyethylene Glycol 17 gm 05/20/25 22:40 05/21/25 08:31 Polyethylene Glycol 3350 17 Gm Powd.Pack PO 17 gm QAM HARVEY Administration Rosuvastatin Calcium 20 mg 05/20/25 21:00 05/21/25 20:41 Rosuvastatin 20 Mg Tablet PO 20 mg HS HARVEY Administration Radiology Results: ITS Impressions Head CT 05/20/25 07:23 IMPRESSION: 1. No acute intracranial findings. Chest X-Ray 05/20/25 08:29 IMPRESSION: 1. Portable chest x-ray with no focal acute process. Head/Neck CTA 05/20/25 09:16 IMPRESSION: CTA NECK: 1. No acute findings. CTA HEAD: 1. No acute findings. Abdomen X-Ray 05/21/25 07:44 IMPRESSION: 1. No acute abnormality. Abdomen/Pelvis CT 05/21/25 17:14 IMPRESSION: 1. No acute findings in the upper abdomen and pelvis. Fecal impaction in the colon. 2. Mildly distended gallbladder. No edema of the gallbladder wall. No calcified stones. 3. Hiatus hernia. Labs Labs: Laboratory Results - last 24 hr 05/21/25 05/21/25 05/21/25 08:23 08:24 11:16 WBC RBC Hgb Hct MCV MCH MCHC RDW Plt Count MPV Sodium Potassium Chloride Carbon Dioxide Anion Gap BUN Creatinine Estim Creat Clear Calc Estimated GFR Glucose POC Capillary Glucose Calcium Total Bilirubin AST ALT Alkaline Phosphatase Total Protein Albumin TSH (Reflex) 1.840 Random Cortisol 26.60 U Random Total Protein 24 Ur Random Sodium 28 Urine Creatinine 155.9 Protein/Creat Ratio 2 0.15 05/21/25 05/21/25 05/21/25 13:44 16:37 18:09 WBC RBC Hgb Hct MCV MCH MCHC RDW Plt Count MPV Sodium 120 L Potassium Chloride Carbon Dioxide Anion Gap BUN Creatinine Estim Creat Clear Calc Estimated GFR Glucose POC Capillary Glucose 143 H 116 H Calcium Total Bilirubin AST ALT Alkaline Phosphatase Total Protein Albumin TSH (Reflex) Random Cortisol U Random Total Protein Ur Random Sodium Urine Creatinine Protein/Creat Ratio 2 05/21/25 05/21/25 05/22/25 19:55 20:23 01:02 WBC RBC Hgb Hct MCV MCH MCHC RDW Plt Count MPV Sodium 120 L Potassium Chloride Carbon Dioxide Anion Gap BUN Creatinine Estim Creat Clear Calc Estimated GFR Glucose POC Capillary Glucose 120 H 131 H Calcium Total Bilirubin AST ALT Alkaline Phosphatase Total Protein Albumin TSH (Reflex) Random Cortisol U Random Total Protein Ur Random Sodium Urine Creatinine Protein/Creat Ratio 2 05/22/25 05/22/25 05/22/25 02:51 07:31 07:57 WBC 10.4 H RBC 4.59 Hgb 13.6 Hct 38.0 MCV 82.8 MCH 29.6 MCHC 35.8 RDW 11.9 Plt Count 173 MPV 12.3 H Sodium 122 L 120 L Potassium 3.6 3.2 L Chloride 89 L 89 L Carbon Dioxide 26 25 Anion Gap 7 6 BUN 14 16 Creatinine 0.68 L 0.67 L Estim Creat Clear Calc 49 50 Estimated GFR > 60 > 60 Glucose 116 H 106 POC Capillary Glucose 112 H Calcium 8.4 8.2 L Total Bilirubin 1.2 AST 34 ALT 19 Alkaline Phosphatase 47 Total Protein 6.9 Albumin 4.2 TSH (Reflex) Random Cortisol U Random Total Protein Ur Random Sodium Urine Creatinine Protein/Creat Ratio 2 Quality VTE Prophylaxis VTE prophylaxis: pharmacologic ordered
[2025-05-22] MEDS: LOSARTAN POTASSIUM 100 MG TABLET PO (08:58)
[2025-05-22] MEDS: ASPIRIN 81 MG ENTERIC TABLET PO (08:58)
[2025-05-22] MEDS: CLOPIDOGREL BISULFATE 75 MG TABLET PO (08:58)
[2025-05-22] MEDS: PANTOPRAZOLE 40 MG TABLET PO ×2 (08:59→17:29)
[2025-05-22] MEDS: ONDANSETRON INJ 4 MG/2 ML VIAL IV PUSH (09:06)
[2025-05-22] MEDS: FLUTICASONE PROPIONATE 0.05% NA SPR 16 GM BTL (*BKC) 2 SPRAY NASAL (09:06)
[2025-05-22] MEDS: SODIUM CHLORIDE 3% 180 ML 60 ML IV CONT (10:34)
--- NOTE | 2025-05-22 13:06 | P.PNNP_ITS ---
Progress Note: A&P Assessment and Plan (1) Hyponatremia: Code(s): E87.1 - Hypo-osmolality and hyponatremia Status: Acute Assessment and Plan: * noted on admission * no real improvement with normal saline IVFs * evaluation to date noted: * CT/MRI of brain negative * TSH okay * cortisol good * SPEP/UPEP negative * urine electrolytes suggest prerenal azotemia * serum/urine osmolality pending * HCTZ on hold * s/p 3% saline x 2 * started on salt tabs * holding lasix given nausea/vomiting + NPO status (fluid restricted by default) * follow trend of repeat sodium levels (2) Altered mental status: Qualifiers: Altered mental status type: unspecified Qualified Code(s): R41.82 - Altered mental status, unspecified Code(s): R41.82 - Altered mental status, unspecified Status: Acute Assessment and Plan: * resolved * noted on presentation * etiology not clear * extensive evaualtion to date noted * CT head and head/neck * MRI of brain * Echo * EEG * Neurology following (3) Nausea & vomiting: Code(s): R11.2 - Nausea with vomiting, unspecified Status: Acute Assessment and Plan: * noted on admission * on antiemetics * CT imaging ordered for further evaluation (4) Hypertension: Qualifiers: Hypertension type: primary hypertension Qualified Code(s): I10 - Essential (primary) hypertension Code(s): I10 - Essential (primary) hypertension Status: Chronic Assessment and Plan: * reasonable control * HCTZ on hold * follow trend of hemodynamics Will continue to follow. Time Spent With Patient Time with patient: 25 - 35 minutes Subjective Date/time seen: 05/22/25 13:06 Interval history: Follow-up for acute on chronic hyponatremia. No real improvement in sodium with LR IVFs so given 3% saline with mild improvement overnight but then dropped again AM labs so another round of 3% saline given; issues noted with nausea and vomiting so currently NPO with results of CT of A/P noted. Exam Narrative: General: elderly but WD/WN female in NAD Heart: normal S1 and S2; no rub Lungs: clear to auscultation Abdomen: soft, nontender, nondistended, positive bowel sounds Extremities: no cyanosis or clubbing; no edema Skin: warm and dry Objective Data Vital Signs Vital Signs: Vital Signs Temp Pulse Resp BP Pulse Ox O2 Del Method 05/22/25 13:04 97.9 F 55 L 16 116/49 L 98 05/22/25 12:00 62 05/22/25 08:58 58 L 05/22/25 08:56 58 L 144/54 H 98 05/22/25 08:00 Room Air 05/22/25 08:00 58 L 05/22/25 04:24 98.6 F 63 20 126/54 L 98 05/22/25 04:00 63 05/22/25 00:00 62 05/21/25 20:41 66 05/21/25 20:00 66 05/21/25 20:00 Room Air 05/21/25 19:56 98.0 F 64 20 138/47 L 97 Intake/Output Intake/Output: Intake & Output 05/19/25 05/20/25 05/21/25 05/22/25 23:59 23:59 23:59 23:59 Intake Total 1240 200 Output Total 100 150 Balance 1140 50 Meds/Results Medications: Active Medications Generic Name Dose Route Start Last Admin Trade Name Freq PRN Reason Stop Dose Admin Acetaminophen 650 mg 05/20/25 17:30 05/20/25 21:07 Acetaminophen 325 Mg Tablet PO 650 mg Q6H PRN Administration Mild Pain (1-3) or Fever Aspirin 81 mg 05/21/25 13:50 05/22/25 08:58 Aspirin 81 Mg Enteric Tablet PO 81 mg QAM HARVEY Administration Carvedilol 6.25 mg 05/20/25 21:00 05/22/25 08:58 Carvedilol 6.25 Mg Tablet PO 6.25 mg Q12HR HARVEY Administration Clopidogrel Bisulfate 75 mg 05/21/25 13:50 05/22/25 08:58 Clopidogrel Bisulfate 75 Mg Tablet PO 75 mg QAM HARVEY Administration Dextrose 12.5 gm 05/21/25 13:30 Dextrose 50% 25 Gm/50 Ml Syringe IV PUSH PRN PRN Hypoglycemia Protocol Diazepam 10 mg 05/20/25 17:38 05/22/25 06:54 Diazepam (*Crx) 5 Mg Tablet PO 10 mg Q6H PRN Administration Anxiety Docusate Sodium 100 mg 05/20/25 17:44 05/21/25 08:31 Docusate Sodium 100 Mg Capsule PO 100 mg Q12H PRN Administration Constipation Duloxetine HCl 20 mg 05/21/25 09:00 05/22/25 08:58 Duloxetine Hcl 20 Mg Capsule.Dr PO 20 mg DAILY HARVEY Administration Enoxaparin Sodium 40 mg 05/20/25 21:00 05/21/25 20:40 Enoxaparin 40 Mg/0.4 Ml Syringe SUB-Q 40 mg HS HARVEY Administration Fluticasone Propionate 2 spray 05/21/25 09:00 05/22/25 09:06 Fluticasone Propionate 0.05% Na Spr 16 Gm Btl (*Bkc) NASAL 2 spray DAILY HARVEY Administration Glucagon 1 mg 05/21/25 13:30 Glucagon For Inj 1 Mg Vial IM PRN PRN Hypoglycemia Protocol Glucose 15 gm 05/21/25 13:30 Glucose Oral Gel 15 Gm Of Glucse In 37.5 Gm Tube PO PRN PRN Hypoglycemia Protocol Hydralazine HCl 50 mg 05/20/25 21:00 05/22/25 08:58 Hydralazine Hcl 50 Mg Tablet PO 50 mg Q12HR HARVEY Administration Dextrose 1,000 mls @ 100 mls/hr 05/21/25 13:30 Dextrose 5% 1,000 Ml IVPB PRN PRN Hypoglycemia Protocol Losartan Potassium 100 mg 05/21/25 09:00 05/22/25 08:58 Losartan Potassium 100 Mg Tablet PO 100 mg DAILY HARVEY Administration Metoclopramide HCl 5 mg 05/21/25 00:00 05/22/25 12:36 Metoclopramide Hcl Inj 10 Mg/2 Ml Vial IV PUSH 5 mg Q6HR HARVEY Administration Nifedipine 30 mg 05/21/25 09:00 05/22/25 08:58 Nifedipine 30 Mg Tab.Er.24 PO 30 mg DAILY HARVEY Administration Ondansetron HCl 4 mg 05/20/25 17:32 05/22/25 09:06 Ondansetron Inj 4 Mg/2 Ml Vial IV PUSH 4 mg Q4H PRN Administration Nausea And Vomiting Pantoprazole Sodium 40 mg 05/21/25 09:00 05/22/25 08:59 Pantoprazole 40 Mg Tablet PO 40 mg BID HARVEY Administration Perflutren Lipid Microsphere 0 ml 05/20/25 23:07 Perflutren Lipid Microspheres 1.5 Ml Vial Diluted To 10 Ml Total Volume IV PUSH 05/23/25 23:07 ONCE PRN adequate visualization Protocol Polyethylene Glycol 17 gm 05/20/25 22:40 05/22/25 08:59 Polyethylene Glycol 3350 17 Gm Powd.Pack PO 17 gm QAM HARVEY Administration Potassium Chloride 40 meq 05/22/25 15:50 Potassium Chloride 20 Meq Packet (For Liquid) PO DAILY HARVEY Rosuvastatin Calcium 20 mg 05/20/25 21:00 05/21/25 20:41 Rosuvastatin 20 Mg Tablet PO 20 mg HS HARVEY Administration Radiology Results: ITS Impressions Head CT 05/20/25 07:23 IMPRESSION: 1. No acute intracranial findings. Chest X-Ray 05/20/25 08:29 IMPRESSION: 1. Portable chest x-ray with no focal acute process. Head/Neck CTA 05/20/25 09:16 IMPRESSION: CTA NECK: 1. No acute findings. CTA HEAD: 1. No acute findings. Abdomen X-Ray 05/21/25 07:44 IMPRESSION: 1. No acute abnormality. Abdomen/Pelvis CT 05/21/25 17:14 IMPRESSION: 1. No acute findings in the upper abdomen and pelvis. Fecal impaction in the colon. 2. Mildly distended gallbladder. No edema of the gallbladder wall. No calcified stones. 3. Hiatus hernia. Brain MRI 05/22/25 08:45 IMPRESSION: 1. No acute ischemic event, mass or hemorrhage. No suspicious lesions or masses seen. Previously described left-sided acusticus lesion or enhancement focus not clearly changed. 2. Mild to moderately advanced chronic microvascular ischemic appearing white matter changes which have progressed since the 2020 exam. Labs Labs: Laboratory Results - last 24 hr 05/22/25 05/22/25 05/22/25 01:02 02:51 07:31 WBC 10.4 H Hgb 13.6 Hct 38.0 Plt Count 173 Sodium 122 L 120 L Potassium 3.6 3.2 L Chloride 89 L 89 L Carbon Dioxide 26 25 Anion Gap 7 6 BUN 14 16 Creatinine 0.68 L 0.67 L Estim Creat Clear Calc 49 50 Estimated GFR > 60 > 60 Glucose 116 H 106 Calcium 8.4 8.2 L Total Bilirubin 1.2 AST 34 ALT 19 Alkaline Phosphatase 47 Total Protein 6.9 Albumin 4.2 Attestation Student Attestation another run of 3% saline today due to NPO status, unable to give salt tabs follow trend of sodium
[2025-05-22 14:43] LABS: Sodium 124 mmol/L (137-145)
[2025-05-22] MEDS: POTASSIUM CHLORIDE 20 MEQ PACKET (FOR LIQUID) 40 MEQ PO (17:29)
[2025-05-22] MEDS: BISACODYL 10 MG SUPPOSITORY RECTAL (17:29)
[2025-05-22 18:39] LABS: Sodium 123 mmol/L (137-145)
[2025-05-22] MEDS: SODIUM CHLORIDE 1 GM TABLET PO (18:55)
[2025-05-22] MEDS: ROSUVASTATIN 20 MG TABLET PO (22:00)
[2025-05-22] MEDS: ENOXAPARIN 40 MG/0.4 ML SYRINGE SUB-Q (22:03)
[2025-05-22 22:45] LABS: Sodium 125 mmol/L (137-145)
[2025-05-23] VITALS (11 sets, daily range): BP systolic 123–162; BP diastolic 46–62; PULSE 55–76; RESP 14–18; TEMP 36.3–36.8; O2SAT 96–98
[2025-05-23] MEDS: METOCLOPRAMIDE HCL INJ 10 MG/2 ML VIAL 5 MG IV PUSH ×4 (00:05→17:19)
[2025-05-23 05:13] LABS: Hematocrit 34.6 % (37.0-47.0); Hemoglobin 12.1 g/dL (12.0-15.0); Mean Corpuscular HGB Conc 35.0 g/dl (32-36); Mean Corpuscular Hemoglobin 29.8 pg (26-34); Mean Corpuscular Volume 85.2 fl (80-100); Platelet Count Result 144 k/mm3 (150-375); Red Blood Count 4.06 M/mm3 (4.2-5.4); White Blood Count 9.2 K/mm3 (4.5-10.0)
[2025-05-23 05:38] LABS: Alanine Aminotransferase 15 U/L (6-35); Albumin Level 3.8 g/dL (3.5-5.1); Alkaline Phosphatase 47 U/L (38-126); Anion Gap 7 mmol/L (4-12); Aspartate Amino Transferase 28 U/L (14-36); Bilirubin,Total 0.9 mg/dL (0.2-1.3); Blood Urea Nitrogen 16 mg/dL (7-17); Calcium 8.2 mg/dL (8.4-10.2); Carbon Dioxide 22 mmol/L (22-30); Chloride 95 mmol/L (98-107); Estimated CRCL calculation 47 ml/min; Estimated Glomerular Filt Rate > 60; Glucose 82 mg/dL (65-110); Potassium 3.7 mmol/L (3.4-5.0); Sodium 124 mmol/L (137-145); Total Protein 6.3 g/dL (6.3-8.2)
[2025-05-23] MEDS: ASPIRIN 81 MG ENTERIC TABLET PO (09:28)
[2025-05-23] MEDS: CLOPIDOGREL BISULFATE 75 MG TABLET PO (09:29)
[2025-05-23] MEDS: POTASSIUM CHLORIDE 20 MEQ PACKET (FOR LIQUID) 40 MEQ PO (09:30)
[2025-05-23] MEDS: SODIUM CHLORIDE 1 GM TABLET PO ×2 (09:30→17:19)
[2025-05-23] MEDS: PANTOPRAZOLE 40 MG TABLET PO ×2 (09:30→17:19)
[2025-05-23 12:45] LABS: Sodium 126 mmol/L (137-145)
--- NOTE | 2025-05-23 12:45 | WPDNEUROLOGY ---
Neurology EEG Report General Information Date of Study: 05/23/25 TEST Electroencephalogram DIAGNOSIS altered mental status CONDITION OF RECORDING bedside recording EEG NUMBER [id number] CLINICAL HISTORY the patient woke up 2 days ago with dizziness and was not able to talk and she appeared confused. She is feeling better today. Her serum sodium was found to be low. EEG DESCRIPTION During wakefulness the background activity consists of predominantly theta activity 7 hertz with an amplitude of 10-25 microvolts the posterior head region. There is no significant anteroposterior gradient. Significant muscle tension artifacts were seen in frontotemporal area throughout the recording. Patient did not progress to stage 2 sleep. Hyperventilation or photic stimulation were not performed. IMPRESSION This is an mild abnormal EEG due to presence of diffuse background slowing suggestive of generalized encephalopathy. No focal or paroxysmal abnormalities were identified however significant muscle tension artifacts were seen in frontotemporal areas which may limit identification of focal abnormalities. Follow-up study with recording of sleep may be helpful.
--- NOTE | 2025-05-23 13:33 | P.PNNP_ITS ---
Progress Note: A&P Assessment and Plan (1) Hyponatremia: Code(s): E87.1 - Hypo-osmolality and hyponatremia Status: Acute Assessment and Plan: * noted on admission * no real improvement with normal saline IVFs * evaluation to date noted: * CT/MRI of brain negative * TSH okay * cortisol good * SPEP/UPEP negative * urine electrolytes suggest prerenal azotemia * serum/urine osmolality pending * HCTZ on hold * s/p 3% saline x 2 * on salt tabs * holding lasix given previous nausea/vomiting + NPO status * follow trend of repeat sodium levels (2) Altered mental status: Qualifiers: Altered mental status type: unspecified Qualified Code(s): R41.82 - Altered mental status, unspecified Code(s): R41.82 - Altered mental status, unspecified Status: Acute Assessment and Plan: * resolved * noted on presentation * etiology not clear * extensive evaualtion to date noted * CT head and head/neck * MRI of brain * Echo * EEG * Neurology following (3) Nausea & vomiting: Code(s): R11.2 - Nausea with vomiting, unspecified Status: Acute Assessment and Plan: * slow improvement * noted on admission * on antiemetics * CT imaging noted: fecal impaction in the colon * on bowel regiment (4) Hypertension: Qualifiers: Hypertension type: primary hypertension Qualified Code(s): I10 - Essential (primary) hypertension Code(s): I10 - Essential (primary) hypertension Status: Chronic Assessment and Plan: * reasonable control * HCTZ on hold * follow trend of hemodynamics Will continue to follow. L Subjective Date/time seen: 05/23/25 13:33 Interval history: Follow-up for acute on chronic hyponatremia. Sodium appears to be slowly improving with curreht therapy/intervenetions (3% saline x 2 and initiation of salt tablets); nausea/vomiting seems to be doing better; diet being slowly advanced. Exam 2 Narrative: General: elderly but WD/WN female in NAD Heart: normal S1 and S2; no rub Lungs: clear to auscultation Abdomen: soft, nontender, nondistended, positive bowel sounds Extremities: no cyanosis or clubbing; no edema Skin: no rash Objective Data Vital Signs Vital Signs: Vital Signs Temp Pulse Resp BP Pulse Ox O2 Del Method 05/23/25 12:00 97.4 F L 76 18 134/62 96 05/23/25 09:21 57 L 123/46 L 05/23/25 09:20 Room Air 05/23/25 08:53 Room Air 05/23/25 08:00 55 L 05/23/25 06:00 98.0 F 61 14 123/50 L 98 05/23/25 04:00 58 L 05/23/25 00:00 62 05/22/25 22:00 60 05/22/25 20:00 61 05/22/25 20:00 Room Air 05/22/25 19:54 97.7 F 60 16 127/47 L 97 Intake/Output Intake/Output: Intake & Output 05/20/25 05/21/25 05/22/25 05/23/25 23:59 23:59 23:59 23:59 Intake Total 0786 222 4331 Output Total 100 150 Balance 1140 50 1020 Meds/Results Medications: Active Medications Generic Name Dose Route Start Last Admin Trade Name Freq PRN Reason Stop Dose Admin Acetaminophen 650 mg 05/20/25 17:30 05/20/25 21:07 Acetaminophen 325 Mg Tablet PO 650 mg Q6H PRN Administration Mild Pain (1-3) or Fever Aspirin 81 mg 05/21/25 13:50 05/23/25 09:28 Aspirin 81 Mg Enteric Tablet PO 81 mg QAM HARVEY Administration Carvedilol 6.25 mg 05/20/25 21:00 05/23/25 09:29 Carvedilol 6.25 Mg Tablet PO Not Given Q12HR HARVEY Clopidogrel Bisulfate 75 mg 05/21/25 13:50 05/23/25 09:29 Clopidogrel Bisulfate 75 Mg Tablet PO 75 mg QAM HARVEY Administration Dextrose 12.5 gm 05/21/25 13:30 Dextrose 50% 25 Gm/50 Ml Syringe IV PUSH PRN PRN Hypoglycemia Protocol Diazepam 10 mg 05/20/25 17:38 05/22/25 06:54 Diazepam (*Crx) 5 Mg Tablet PO 10 mg Q6H PRN Administration Anxiety Docusate Sodium 100 mg 05/20/25 17:44 05/21/25 08:31 Docusate Sodium 100 Mg Capsule PO 100 mg Q12H PRN Administration Constipation Duloxetine HCl 20 mg 05/21/25 09:00 05/23/25 09:29 Duloxetine Hcl 20 Mg Capsule.Dr PO 20 mg DAILY HARVEY Administration Enoxaparin Sodium 40 mg 05/20/25 21:00 05/22/25 22:03 Enoxaparin 40 Mg/0.4 Ml Syringe SUB-Q 40 mg HS HARVEY Administration Fluticasone Propionate 2 spray 05/21/25 09:00 05/23/25 09:35 Fluticasone Propionate 0.05% Na Spr 16 Gm Btl (*Bkc) NASAL Not Given DAILY HARVEY Glucagon 1 mg 05/21/25 13:30 Glucagon For Inj 1 Mg Vial IM PRN PRN Hypoglycemia Protocol Glucose 15 gm 05/21/25 13:30 Glucose Oral Gel 15 Gm Of Glucse In 37.5 Gm Tube PO PRN PRN Hypoglycemia Protocol Hydralazine HCl 50 mg 05/20/25 21:00 05/23/25 09:29 Hydralazine Hcl 50 Mg Tablet PO Not Given Q12HR HARVEY Dextrose 1,000 mls @ 100 mls/hr 05/21/25 13:30 Dextrose 5% 1,000 Ml IVPB PRN PRN Hypoglycemia Protocol Lactulose 20 gm 05/23/25 15:55 05/23/25 17:19 Lactulose 20 Gm/30 Ml Udc PO 20 gm QAM HARVEY Administration Losartan Potassium 100 mg 05/21/25 09:00 05/23/25 09:30 Losartan Potassium 100 Mg Tablet PO Not Given DAILY HARVEY Metoclopramide HCl 5 mg 05/21/25 00:00 05/23/25 17:19 Metoclopramide Hcl Inj 10 Mg/2 Ml Vial IV PUSH 5 mg Q6HR HARVEY Administration Nifedipine 30 mg 05/21/25 09:00 05/23/25 09:30 Nifedipine 30 Mg Tab.Er.24 PO Not Given DAILY HARVEY Ondansetron HCl 4 mg 05/20/25 17:32 05/22/25 09:06 Ondansetron Inj 4 Mg/2 Ml Vial IV PUSH 4 mg Q4H PRN Administration Nausea And Vomiting Pantoprazole Sodium 40 mg 05/21/25 09:00 05/23/25 17:19 Pantoprazole 40 Mg Tablet PO 40 mg BID HARVEY Administration Perflutren Lipid Microsphere 0 ml 05/20/25 23:07 Perflutren Lipid Microspheres 1.5 Ml Vial Diluted To 10 Ml Total Volume IV PUSH 05/23/25 23:07 ONCE PRN adequate visualization Protocol Polyethylene Glycol 17 gm 05/20/25 22:40 05/23/25 09:30 Polyethylene Glycol 3350 17 Gm Powd.Pack PO 17 gm QAM HARVEY Administration Potassium Chloride 40 meq 05/22/25 15:50 05/23/25 09:30 Potassium Chloride 20 Meq Packet (For Liquid) PO 40 meq DAILY HARVEY Administration Rosuvastatin Calcium 20 mg 05/20/25 21:00 05/22/25 22:00 Rosuvastatin 20 Mg Tablet PO 20 mg HS HARVEY Administration Sodium Chloride 1 gm 05/22/25 18:50 05/23/25 17:19 Sodium Chloride 1 Gm Tablet PO 1 gm BID HARVEY Administration Radiology Results: ITS Impressions Head CT 05/20/25 07:23 IMPRESSION: 1. No acute intracranial findings. Chest X-Ray 05/20/25 08:29 IMPRESSION: 1. Portable chest x-ray with no focal acute process. Head/Neck CTA 05/20/25 09:16 IMPRESSION: CTA NECK: 1. No acute findings. CTA HEAD: 1. No acute findings. Abdomen X-Ray 05/21/25 07:44 IMPRESSION: 1. No acute abnormality. Abdomen/Pelvis CT 05/21/25 17:14 IMPRESSION: 1. No acute findings in the upper abdomen and pelvis. Fecal impaction in the colon. 2. Mildly distended gallbladder. No edema of the gallbladder wall. No calcified stones. 3. Hiatus hernia. Brain MRI 05/22/25 08:45 IMPRESSION: 1. No acute ischemic event, mass or hemorrhage. No suspicious lesions or masses seen. Previously described left-sided acusticus lesion or enhancement focus not clearly changed. 2. Mild to moderately advanced chronic microvascular ischemic appearing white matter changes which have progressed since the 2020 exam. Labs Labs: Laboratory Tests 05/23/25 04:27 05/23/25 05/23/25 04:28 12:21 Sodium 124 L 126 L Potassium 3.7 Chloride 95 L Carbon Dioxide 22 Anion Gap 7 BUN 16 Creatinine 0.71 Estim Creat Clear Calc 47 Estimated GFR > 60 Glucose 82 Calcium 8.2 L Total Bilirubin 0.9 AST 28 ALT 15 Alkaline Phosphatase 47 Total Protein 6.3 Albumin 3.8
[2025-05-23 14:09] LABS: Albumin 3.7 g/dL (2.9-4.4); Alpha-1-Globulin 0.2 g/dL (0.0-0.4); Alpha-2-Globulin 0.6 g/dL (0.4-1.0); Gamma Globulin 0.7 g/dL (0.4-1.8)
[2025-05-23 15:09] LABS: Albumin, U 50.7 % (.); Alpha-1-Globulin, U 3.9 % (.); Alpha-2-Globulin, U 12.3 % (.); Beta Globulin, U 20.5 % (.); Gamma Globulin, U 12.6 % (.)
--- NOTE | 2025-05-23 15:55 | PM.IMPN ---
Progress Note: A&P Assessment and Plan (1) Altered mental status: Qualifiers: Altered mental status type: unspecified Qualified Code(s): R41.82 - Altered mental status, unspecified Code(s): R41.82 - Altered mental status, unspecified Status: Acute Assessment and Plan: Family states that the patient has increased altered mental status and word finding difficulties. Possibly related to TIA vs CVA vs Hyponatremia vs Seizure - Lipid panel WNL, continue high intensity statin with rosuvastatin 20 mg daily - Head CT and Head/neck CTA were unremarkable - MRI ordered - Echo ordered - Initiate stroke protocol, NIH Stroke Scale, neuro's q.4 hours - Monitor CBC, CMP, magnesium, troponin, and lipid profile - Monitor blood pressure, allow for permissive hypertension. - Telemetry monitoring - Monitor blood glucose - PT/OT eval and treat - Consider speech therapy - Neurology consulted, appreciate assistance and recommendations EEG ordered Started on asa 81 mg daily and plavix 75 mg daily for 21 days Discussed patient with neurology Dr. Downey who agrees with starting patient on asa and plavix at this time. Patient is AOx3 however occasional aphasia noted on exam. Per back to baseline. neurology following eeg recommended EEG completed. Neurology following pt is stable- alert, oriented. (2) Hyponatremia: Code(s): E87.1 - Hypo-osmolality and hyponatremia Status: Acute Assessment and Plan: - Na 122 on admission, received 1L bolus LR in the ED and Na 121 on am labs. No prior labs to compare. - Holding HCTZ - add urine osmolality, serum osmolality, and urine sodium - if euvolemic rule out SIDAH 2/2 SCLC with chest xr: unremarkable adrenal insufficiency: cortisol and TSH - nephrology consulted and following LR IVFs so given 3% saline with mild improvement but then dropped again AM labs so another round of 3% saline given yesterday Na today 126 (3) Nausea & vomiting: Code(s): R11.2 - Nausea with vomiting, unspecified Status: Acute Assessment and Plan: Chronic intermittent constipation for which patient takes colace, last BM 05/17. -KUB showed no acute abnormality -s/p soapsuds enema x1 on admission -continue Colace, MiraLax daily -schedule Reglan -Zofran p.r.n. KUB showed no impaction or obstruction and patient stated nausea had improved and no longer having vomiting. Benign abdominal exam. Attempted to advance diet to full liquid diet however per RN patient again developed vomiting. Patient again made NPO, started on LR 100 ml/hr with accu checks q6h. CT abdomen/pelvis ordered to further assess. 05/23 stable, no complains currently able to tolerate clears and advancing diet (4) Hypertension: Qualifiers: Hypertension type: primary hypertension Qualified Code(s): I10 - Essential (primary) hypertension Code(s): I10 - Essential (primary) hypertension Status: Chronic Assessment and Plan: Chronic, continue home medications - hydralazine 50 mg BID, losartan 100 mg daily, nifedipine 30 mg daily - holding HCTZ 25 mg daily for hyponatremia - blood pressures reviewed and remain stable, continue to monitor (5) Vestibular schwannoma: Code(s): D33.3 - Benign neoplasm of cranial nerves Status: Chronic Assessment and Plan: history of left-sided vestibular schwannoma s/p excision in 2019 at [facility] with serial MRIs (6) Constipation: Qualifiers: Constipation type: unspecified constipation type Qualified Code(s): K59.00 - Constipation, unspecified Code(s): K59.00 - Constipation, unspecified Status: Acute Assessment and Plan: per CT film on 05/21 received an enema with small return -currently passing gas and abd is soft and non tender able to eat and no nausea will continue bowel regimen add lactulose to facilitate BM, monitor closely Time Spent With Patient Time with patient: Greater than 35 minutes Subjective Date/time seen: 05/23/25 15:55 Interval history: Pt is seen and examined. Passing gas but no BM. Tolerating clears ok, will slowly advance diet. Review of Systems Review of Systems: All systems reviewed & are unremarkable except as noted in HPI and below Exam Narrative: General: female in no acute respiratory distress who is nontoxic appearing, lying semi recumbent in bed. HEENT: Normocephalic. Atraumatic. Extraocular movement intact. Sclera clear and anicteric. No facial asymmetry. Chest: Lungs are clear to auscultation bilaterally. No wheezes or crackles. CV: Heart was regular rate and rhythm. S1-S2. No murmurs, gallops, or rubs. Abd: Abdomen was soft. Nontender. Nondistended. Positive bowel sounds. Ext: No clubbing, cyanosis, or edema. DP pulses bilaterally. Neuro: Patient is alert and oriented x3. Strength is 5/5 in both upper and lower extremities. Cranial nerves 2-12 are intact. Speech is clear with occasional aphasia. Const: General: comfortable Objective Data Vital Signs Vital Signs: Vital Signs - 24 hr 05/22/25 16:00 05/22/25 19:54 05/22/25 20:00 Temperature 97.7 F Pulse Rate 63 60 Respiratory Rate 16 Blood Pressure 127/47 L Pulse Oximetry 97 Oxygen Delivery Room Air 05/22/25 20:00 05/22/25 22:00 05/23/25 00:00 Temperature Pulse Rate 61 60 62 Respiratory Rate Blood Pressure Pulse Oximetry Oxygen Delivery 05/23/25 04:00 05/23/25 06:00 05/23/25 08:00 Temperature 98.0 F Pulse Rate 58 L 61 55 L Respiratory Rate 14 Blood Pressure 123/50 L Pulse Oximetry 98 Oxygen Delivery 05/23/25 08:53 05/23/25 09:20 05/23/25 09:21 Temperature Pulse Rate 57 L Respiratory Rate Blood Pressure 123/46 L Pulse Oximetry Oxygen Delivery Room Air Room Air 05/23/25 12:00 05/23/25 14:00 Temperature 97.4 F L Pulse Rate 55 L 76 Respiratory Rate 18 Blood Pressure 134/62 Pulse Oximetry 96 Oxygen Delivery Intake/Output Intake/Output: Intake & Output 05/20/25 05/21/25 05/22/25 05/23/25 23:59 23:59 23:59 23:59 Intake Total 1240 200 300 Output Total 100 150 Balance 1140 50 300 Meds/Results Medications: Active Medications Generic Name Dose Route Start Last Admin Trade Name Freq PRN Reason Stop Dose Admin Acetaminophen 650 mg 05/20/25 17:30 05/20/25 21:07 Acetaminophen 325 Mg Tablet PO 650 mg Q6H PRN Administration Mild Pain (1-3) or Fever Aspirin 81 mg 05/21/25 13:50 05/23/25 09:28 Aspirin 81 Mg Enteric Tablet PO 81 mg QAM HARVEY Administration Carvedilol 6.25 mg 05/20/25 21:00 05/23/25 09:29 Carvedilol 6.25 Mg Tablet PO Not Given Q12HR HARVEY Clopidogrel Bisulfate 75 mg 05/21/25 13:50 05/23/25 09:29 Clopidogrel Bisulfate 75 Mg Tablet PO 75 mg QAM HARVEY Administration Dextrose 12.5 gm 05/21/25 13:30 Dextrose 50% 25 Gm/50 Ml Syringe IV PUSH PRN PRN Hypoglycemia Protocol Diazepam 10 mg 05/20/25 17:38 05/22/25 06:54 Diazepam (*Crx) 5 Mg Tablet PO 10 mg Q6H PRN Administration Anxiety Docusate Sodium 100 mg 05/20/25 17:44 05/21/25 08:31 Docusate Sodium 100 Mg Capsule PO 100 mg Q12H PRN Administration Constipation Duloxetine HCl 20 mg 05/21/25 09:00 05/23/25 09:29 Duloxetine Hcl 20 Mg Capsule.Dr PO 20 mg DAILY HARVEY Administration Enoxaparin Sodium 40 mg 05/20/25 21:00 05/22/25 22:03 Enoxaparin 40 Mg/0.4 Ml Syringe SUB-Q 40 mg HS HARVEY Administration Fluticasone Propionate 2 spray 05/21/25 09:00 05/23/25 09:35 Fluticasone Propionate 0.05% Na Spr 16 Gm Btl (*Bkc) NASAL Not Given DAILY HARVEY Glucagon 1 mg 05/21/25 13:30 Glucagon For Inj 1 Mg Vial IM PRN PRN Hypoglycemia Protocol Glucose 15 gm 05/21/25 13:30 Glucose Oral Gel 15 Gm Of Glucse In 37.5 Gm Tube PO PRN PRN Hypoglycemia Protocol Hydralazine HCl 50 mg 05/20/25 21:00 05/23/25 09:29 Hydralazine Hcl 50 Mg Tablet PO Not Given Q12HR HARVEY Dextrose 1,000 mls @ 100 mls/hr 05/21/25 13:30 Dextrose 5% 1,000 Ml IVPB PRN PRN Hypoglycemia Protocol Lactulose 20 gm 05/23/25 15:55 Lactulose 20 Gm/30 Ml Udc PO QAM HARVEY Losartan Potassium 100 mg 05/21/25 09:00 05/23/25 09:30 Losartan Potassium 100 Mg Tablet PO Not Given DAILY HARVEY Metoclopramide HCl 5 mg 05/21/25 00:00 05/23/25 12:41 Metoclopramide Hcl Inj 10 Mg/2 Ml Vial IV PUSH 5 mg Q6HR HARVEY Administration Nifedipine 30 mg 05/21/25 09:00 05/23/25 09:30 Nifedipine 30 Mg Tab.Er.24 PO Not Given DAILY HARVEY Ondansetron HCl 4 mg 05/20/25 17:32 05/22/25 09:06 Ondansetron Inj 4 Mg/2 Ml Vial IV PUSH 4 mg Q4H PRN Administration Nausea And Vomiting Pantoprazole Sodium 40 mg 05/21/25 09:00 05/23/25 09:30 Pantoprazole 40 Mg Tablet PO 40 mg BID HARVEY Administration Perflutren Lipid Microsphere 0 ml 05/20/25 23:07 Perflutren Lipid Microspheres 1.5 Ml Vial Diluted To 10 Ml Total Volume IV PUSH 05/23/25 23:07 ONCE PRN adequate visualization Protocol Polyethylene Glycol 17 gm 05/20/25 22:40 05/23/25 09:30 Polyethylene Glycol 3350 17 Gm Powd.Pack PO 17 gm QAM HARVEY Administration Potassium Chloride 40 meq 05/22/25 15:50 05/23/25 09:30 Potassium Chloride 20 Meq Packet (For Liquid) PO 40 meq DAILY HARVEY Administration Rosuvastatin Calcium 20 mg 05/20/25 21:00 05/22/25 22:00 Rosuvastatin 20 Mg Tablet PO 20 mg HS HARVEY Administration Sodium Chloride 1 gm 05/22/25 18:50 05/23/25 09:30 Sodium Chloride 1 Gm Tablet PO 1 gm BID HARVEY Administration Radiology Results: ITS Impressions Head CT 05/20/25 07:23 IMPRESSION: 1. No acute intracranial findings. Chest X-Ray 05/20/25 08:29 IMPRESSION: 1. Portable chest x-ray with no focal acute process. Head/Neck CTA 05/20/25 09:16 IMPRESSION: CTA NECK: 1. No acute findings. CTA HEAD: 1. No acute findings. Abdomen X-Ray 05/21/25 07:44 IMPRESSION: 1. No acute abnormality. Abdomen/Pelvis CT 05/21/25 17:14 IMPRESSION: 1. No acute findings in the upper abdomen and pelvis. Fecal impaction in the colon. 2. Mildly distended gallbladder. No edema of the gallbladder wall. No calcified stones. 3. Hiatus hernia. Brain MRI 05/22/25 08:45 IMPRESSION: 1. No acute ischemic event, mass or hemorrhage. No suspicious lesions or masses seen. Previously described left-sided acusticus lesion or enhancement focus not clearly changed. 2. Mild to moderately advanced chronic microvascular ischemic appearing white matter changes which have progressed since the 2020 exam. Labs Labs: Laboratory Results - last 24 hr 05/21/25 05/22/25 05/22/25 11:16 02:51 17:15 WBC RBC Hgb Hct MCV MCH MCHC RDW Plt Count MPV Sodium Potassium Chloride Carbon Dioxide Anion Gap BUN Creatinine Estim Creat Clear Calc Estimated GFR Glucose POC Capillary Glucose 116 H Calcium Total Bilirubin AST ALT Alkaline Phosphatase Total Protein Total Protein (PEP) 6.2 Albumin Albumin (PEP) 3.7 Globulin (PEP) 2.5 Albumin/Globulin Ratio 1.5 Tzdhs-4-Qoxpnpbsj 0.2 Onrwh-3-Mlrnmxqug 0.6 Beta Globulins 0.9 Gamma Globulins 0.7 PEP Comment Comment Urine Total Protein 51.3 Urine Albumin (PEP) 50.7 U Vmpan-5-Cdvfpwxm 3.9 U Tewda-9-Mujnucgm 12.3 U Beta Globulin 20.5 U Gamma Globulin 12.6 U Random M-Mauro (%) Not observed Urine PEP Note Comment Pr Electrophoresis MSpike Not observed 05/22/25 05/22/25 05/22/25 18:22 22:17 23:43 WBC RBC Hgb Hct MCV MCH MCHC RDW Plt Count MPV Sodium 123 L 125 L Potassium Chloride Carbon Dioxide Anion Gap BUN Creatinine Estim Creat Clear Calc Estimated GFR Glucose POC Capillary Glucose 97 Calcium Total Bilirubin AST ALT Alkaline Phosphatase Total Protein Total Protein (PEP) Albumin Albumin (PEP) Globulin (PEP) Albumin/Globulin Ratio Tkpzd-3-Lgnbvzzcj Vtzkv-0-Qpfmhoxhx Beta Globulins Gamma Globulins PEP Comment Urine Total Protein Urine Albumin (PEP) U Vjoen-3-Ifezpmby U Hrfyo-6-Amyjxlpb U Beta Globulin U Gamma Globulin U Random M-Mauro (%) Urine PEP Note Pr Electrophoresis [facility] 05/23/25 05/23/25 05/23/25 04:27 04:28 06:07 WBC 9.2 RBC 4.06 L Hgb 12.1 Hct 34.6 L MCV 85.2 MCH 29.8 MCHC 35.0 RDW 12.0 Plt Count 144 L MPV 12.9 H Sodium 124 L Potassium 3.7 Chloride 95 L Carbon Dioxide 22 Anion Gap 7 BUN 16 Creatinine 0.71 Estim Creat Clear Calc 47 Estimated GFR > 60 Glucose 82 POC Capillary Glucose 94 Calcium 8.2 L Total Bilirubin 0.9 AST 28 ALT 15 Alkaline Phosphatase 47 Total Protein 6.3 Total Protein (PEP) Albumin 3.8 Albumin (PEP) Globulin (PEP) Albumin/Globulin Ratio Lbdfw-8-Mgeqqxuos Flyda-8-Yoytbwrxn Beta Globulins Gamma Globulins PEP Comment Urine Total Protein Urine Albumin (PEP) U Avqim-4-Wakztnzu U Ktjho-6-Idxcbdke U Beta Globulin U Gamma Globulin U Random M-Mauro (%) Urine PEP Note Pr [facility] 05/23/25 05/23/25 07:20 12:21 WBC RBC Hgb Hct MCV MCH MCHC RDW Plt Count MPV Sodium 126 L Potassium Chloride Carbon Dioxide Anion Gap BUN Creatinine Estim Creat Clear Calc Estimated GFR Glucose POC Capillary Glucose 96 Calcium Total Bilirubin AST ALT Alkaline Phosphatase Total Protein Total Protein (PEP) Albumin Albumin (PEP) Globulin (PEP) Albumin/Globulin Ratio Jurxu-2-Sjixlxjwc Xipto-6-Rlbivdmcs Beta Globulins Gamma Globulins PEP Comment Urine Total Protein Urine Albumin (PEP) U Mnfra-1-Toiqaqyr U Xafrs-0-Rdmkguof U Beta Globulin U Gamma Globulin U Random M-Mauro (%) Urine PEP Note Pr Electrophoresis [facility] Quality VTE Prophylaxis VTE prophylaxis: pharmacologic ordered
[2025-05-23] MEDS: LACTULOSE 20 GM/30 ML UDC PO (17:19)
[2025-05-23 20:03] LABS: Sodium 124 mmol/L (137-145)
[2025-05-23] MEDS: ROSUVASTATIN 20 MG TABLET PO (21:07)
[2025-05-23] MEDS: ENOXAPARIN 40 MG/0.4 ML SYRINGE SUB-Q (21:07)
[2025-05-24] VITALS (10 sets, daily range): BP systolic 158–168; BP diastolic 47–62; PULSE 52–60; RESP 16–20; TEMP 36.4–36.7; O2SAT 99–100
[2025-05-24] MEDS: METOCLOPRAMIDE HCL INJ 10 MG/2 ML VIAL 5 MG IV PUSH ×5 (00:21→23:43)
[2025-05-24 05:29] LABS: Hematocrit 34.3 % (37.0-47.0); Hemoglobin 12.1 g/dL (12.0-15.0); Mean Corpuscular HGB Conc 35.3 g/dl (32-36); Mean Corpuscular Hemoglobin 29.7 pg (26-34); Mean Corpuscular Volume 84.3 fl (80-100); Platelet Count Result 148 k/mm3 (150-375); Red Blood Count 4.07 M/mm3 (4.2-5.4); White Blood Count 8.2 K/mm3 (4.5-10.0)
[2025-05-24 05:52] LABS: Alanine Aminotransferase 16 U/L (6-35); Albumin Level 3.7 g/dL (3.5-5.1); Alkaline Phosphatase 43 U/L (38-126); Anion Gap 8 mmol/L (4-12); Aspartate Amino Transferase 31 U/L (14-36); Bilirubin,Total 0.6 mg/dL (0.2-1.3); Blood Urea Nitrogen 12 mg/dL (7-17); Calcium 8.4 mg/dL (8.4-10.2); Carbon Dioxide 23 mmol/L (22-30); Chloride 98 mmol/L (98-107); Estimated CRCL calculation 54 ml/min; Estimated Glomerular Filt Rate > 60; Glucose 89 mg/dL (65-110); Potassium 4.1 mmol/L (3.4-5.0); Sodium 129 mmol/L (137-145); Total Protein 6.4 g/dL (6.3-8.2)
[2025-05-24] MEDS: SODIUM CHLORIDE 1 GM TABLET PO ×2 (10:50→17:40)
[2025-05-24] MEDS: PANTOPRAZOLE 40 MG TABLET PO ×2 (10:50→17:40)
[2025-05-24] MEDS: CLOPIDOGREL BISULFATE 75 MG TABLET PO (10:50)
[2025-05-24] MEDS: POTASSIUM CHLORIDE 20 MEQ PACKET (FOR LIQUID) 40 MEQ PO (10:50)
[2025-05-24] MEDS: ASPIRIN 81 MG ENTERIC TABLET PO (10:51)
[2025-05-24] MEDS: LOSARTAN POTASSIUM 100 MG TABLET PO (10:54)
[2025-05-24] MEDS: LACTULOSE 20 GM/30 ML UDC PO (11:01)
--- NOTE | 2025-05-24 11:21 | PM.IMPN ---
Progress Note: A&P Assessment and Plan (1) Altered mental status: Qualifiers: Altered mental status type: unspecified Qualified Code(s): R41.82 - Altered mental status, unspecified Code(s): R41.82 - Altered mental status, unspecified Status: Acute Assessment and Plan: Family states that the patient has increased altered mental status and word finding difficulties. Possibly related to TIA vs CVA vs Hyponatremia vs Seizure - Lipid panel WNL, continue high intensity statin with rosuvastatin 20 mg daily - Head CT and Head/neck CTA were unremarkable - MRI ordered - Echo ordered - Initiate stroke protocol, NIH Stroke Scale, neuro's q.4 hours - Monitor CBC, CMP, magnesium, troponin, and lipid profile - Monitor blood pressure, allow for permissive hypertension. - Telemetry monitoring - Monitor blood glucose - PT/OT eval and treat - Consider speech therapy - Neurology consulted, appreciate assistance and recommendations EEG ordered Started on asa 81 mg daily and plavix 75 mg daily for 21 days Discussed patient with neurology Dr. Downey who agrees with starting patient on asa and plavix at this time. Patient is AOx3 however occasional aphasia noted on exam. Per back to baseline. neurology following eeg recommended EEG completed. Neurology following pt is stable- alert, oriented. resolved (2) Hyponatremia: Code(s): E87.1 - Hypo-osmolality and hyponatremia Status: Acute Assessment and Plan: - Na 122 on admission, received 1L bolus LR in the ED and Na 121 on am labs. No prior labs to compare. - Holding HCTZ - add urine osmolality, serum osmolality, and urine sodium - if euvolemic rule out SIDAH 2/2 SCLC with chest xr: unremarkable adrenal insufficiency: cortisol and TSH - nephrology consulted and following LR IVFs so given 3% saline with mild improvement but then dropped again AM labs so another round of 3% saline given yesterday Na today 126 05/24- 129 today (3) Nausea & vomiting: Code(s): R11.2 - Nausea with vomiting, unspecified Status: Acute Assessment and Plan: Chronic intermittent constipation for which patient takes colace, last BM 05/17. -KUB showed no acute abnormality -s/p soapsuds enema x1 on admission -continue Colace, MiraLax daily -schedule Reglan -Zofran p.r.n. KUB showed no impaction or obstruction and patient stated nausea had improved and no longer having vomiting. Benign abdominal exam. Attempted to advance diet to full liquid diet however per RN patient again developed vomiting. Patient again made NPO, started on LR 100 ml/hr with accu checks q6h. CT abdomen/pelvis ordered to further assess. 05/23 stable, no complains currently able to tolerate clears and advancing diet (4) Hypertension: Qualifiers: Hypertension type: primary hypertension Qualified Code(s): I10 - Essential (primary) hypertension Code(s): I10 - Essential (primary) hypertension Status: Chronic Assessment and Plan: Chronic, continue home medications - hydralazine 50 mg BID, losartan 100 mg daily, nifedipine 30 mg daily - holding HCTZ 25 mg daily for hyponatremia - blood pressures reviewed and remain stable, continue to monitor (5) Vestibular schwannoma: Code(s): D33.3 - Benign neoplasm of cranial nerves Status: Chronic Assessment and Plan: history of left-sided vestibular schwannoma s/p excision in 2019 at [facility] with serial MRIs (6) Constipation: Qualifiers: Constipation type: unspecified constipation type Qualified Code(s): K59.00 - Constipation, unspecified Code(s): K59.00 - Constipation, unspecified Status: Acute Assessment and Plan: per CT film on 05/21 received an enema with small return -currently passing gas and abd is soft and non tender able to eat and no nausea will continue bowel regimen add lactulose to facilitate BM, monitor closely -------- had BM last night, medium size Time Spent With Patient Time with patient: 25 - 35 minutes Subjective Date/time seen: 05/24/25 11:21 Interval history: 80-year-old female past medical history of left-sided vestibular schwannoma s/p excision in 2019 at [facility], HTN, hyperlipidemia, GERD presents to the hospital with her family on 05/20/2025 for increased altered mental status and word finding difficulties. Pt is seen and examined. She had BM last night, medium size. No nausea, wants diet advanced. Na is better today Review of Systems Review of Systems: All systems reviewed & are unremarkable except as noted in HPI and below Exam Narrative: General: female in no acute respiratory distress who is nontoxic appearing, lying semi recumbent in bed. HEENT: Normocephalic. Atraumatic. Extraocular movement intact. Sclera clear and anicteric. No facial asymmetry. Chest: Lungs are clear to auscultation bilaterally. No wheezes or crackles. CV: Heart was regular rate and rhythm. S1-S2. No murmurs, gallops, or rubs. Abd: Abdomen was soft. Nontender. Nondistended. Positive bowel sounds. Ext: No clubbing, cyanosis, or edema. DP pulses bilaterally. Neuro: Patient is alert and oriented x3. Strength is 5/5 in both upper and lower extremities. Cranial nerves 2-12 are intact. Speech is clear Const: General: comfortable Objective Data Vital Signs Vital Signs: Vital Signs - 24 hr 05/23/25 12:00 05/23/25 14:00 05/23/25 16:00 Temperature 97.4 F L Pulse Rate 55 L 76 64 Respiratory Rate 18 Blood Pressure 134/62 Pulse Oximetry 96 Oxygen Delivery 05/23/25 20:00 05/23/25 20:00 05/23/25 21:07 Temperature Pulse Rate 67 56 L Respiratory Rate Blood Pressure Pulse Oximetry Oxygen Delivery Room Air 05/23/25 21:08 05/24/25 00:00 05/24/25 04:00 Temperature 98.2 F Pulse Rate 55 L 58 L 52 L Respiratory Rate 16 Blood Pressure 162/55 H Pulse Oximetry 98 Oxygen Delivery 05/24/25 05:28 05/24/25 10:47 Temperature 97.7 F Pulse Rate 54 L 60 Respiratory Rate 20 16 Blood Pressure 164/47 H 168/54 H Pulse Oximetry 100 100 Oxygen Delivery Intake/Output Intake/Output: Intake & Output 05/21/25 05/22/25 05/23/25 05/24/25 23:59 23:59 23:59 23:59 Intake Total 200 1020 890 Output Total 150 1100 Balance 50 1020 -210 Meds/Results Medications: Active Medications Generic Name Dose Route Start Last Admin Trade Name Freq PRN Reason Stop Dose Admin Acetaminophen 650 mg 05/20/25 17:30 05/20/25 21:07 Acetaminophen 325 Mg Tablet PO 650 mg Q6H PRN Administration Mild Pain (1-3) or Fever Aspirin 81 mg 05/21/25 13:50 05/24/25 10:51 Aspirin 81 Mg Enteric Tablet PO 81 mg QAM HARVEY Administration Carvedilol 6.25 mg 05/20/25 21:00 05/23/25 21:07 Carvedilol 6.25 Mg Tablet PO 6.25 mg Q12HR HARVEY Administration Clopidogrel Bisulfate 75 mg 05/21/25 13:50 05/24/25 10:50 Clopidogrel Bisulfate 75 Mg Tablet PO 75 mg QAM HARVEY Administration Dextrose 12.5 gm 05/21/25 13:30 Dextrose 50% 25 Gm/50 Ml Syringe IV PUSH PRN PRN Hypoglycemia Protocol Diazepam 10 mg 05/20/25 17:38 05/22/25 06:54 Diazepam (*Crx) 5 Mg Tablet PO 10 mg Q6H PRN Administration Anxiety Docusate Sodium 100 mg 05/20/25 17:44 05/21/25 08:31 Docusate Sodium 100 Mg Capsule PO 100 mg Q12H PRN Administration Constipation Duloxetine HCl 20 mg 05/21/25 09:00 05/24/25 10:50 Duloxetine Hcl 20 Mg Capsule.Dr PO 20 mg DAILY HARVEY Administration Enoxaparin Sodium 40 mg 05/20/25 21:00 05/23/25 21:07 Enoxaparin 40 Mg/0.4 Ml Syringe SUB-Q 40 mg HS HARVEY Administration Fluticasone Propionate 2 spray 05/21/25 09:00 05/24/25 10:54 Fluticasone Propionate 0.05% Na Spr 16 Gm Btl (*Bkc) NASAL Not Given DAILY HARVEY Glucagon 1 mg 05/21/25 13:30 Glucagon For Inj 1 Mg Vial IM PRN PRN Hypoglycemia Protocol Glucose 15 gm 05/21/25 13:30 Glucose Oral Gel 15 Gm Of Glucse In 37.5 Gm Tube PO PRN PRN Hypoglycemia Protocol Hydralazine HCl 50 mg 05/20/25 21:00 05/23/25 21:02 Hydralazine Hcl 50 Mg Tablet PO Not Given Q12HR HARVEY Dextrose 1,000 mls @ 100 mls/hr 05/21/25 13:30 Dextrose 5% 1,000 Ml IVPB PRN PRN Hypoglycemia Protocol Lactulose 20 gm 05/23/25 15:55 05/24/25 11:01 Lactulose 20 Gm/30 Ml Udc PO 20 gm QAM HARVEY Administration Losartan Potassium 100 mg 05/21/25 09:00 05/24/25 10:54 Losartan Potassium 100 Mg Tablet PO 100 mg DAILY HARVEY Administration Metoclopramide HCl 5 mg 05/21/25 00:00 05/24/25 11:01 Metoclopramide Hcl Inj 10 Mg/2 Ml Vial IV PUSH 5 mg Q6HR HARVEY Administration Nifedipine 30 mg 05/21/25 09:00 05/23/25 09:30 Nifedipine 30 Mg Tab.Er.24 PO Not Given DAILY HARVEY Ondansetron HCl 4 mg 05/20/25 17:32 05/22/25 09:06 Ondansetron Inj 4 Mg/2 Ml Vial IV PUSH 4 mg Q4H PRN Administration Nausea And Vomiting Pantoprazole Sodium 40 mg 05/21/25 09:00 05/24/25 10:50 Pantoprazole 40 Mg Tablet PO 40 mg BID HARVEY Administration Polyethylene Glycol 17 gm 05/20/25 22:40 05/24/25 11:09 Polyethylene Glycol 3350 17 Gm Powd.Pack PO Not Given QAM HARVEY Potassium Chloride 40 meq 05/22/25 15:50 05/24/25 10:50 Potassium Chloride 20 Meq Packet (For Liquid) PO 40 meq DAILY HARVEY Administration Rosuvastatin Calcium 20 mg 05/20/25 21:00 05/23/25 21:07 Rosuvastatin 20 Mg Tablet PO 20 mg HS HAVREY Administration Sodium Chloride 1 gm 05/22/25 18:50 05/24/25 10:50 Sodium Chloride 1 Gm Tablet PO 1 gm BID HARVEY Administration Radiology Results: ITS Impressions Head CT 05/20/25 07:23 IMPRESSION: 1. No acute intracranial findings. Chest X-Ray 05/20/25 08:29 IMPRESSION: 1. Portable chest x-ray with no focal acute process. Head/Neck CTA 05/20/25 09:16 IMPRESSION: CTA NECK: 1. No acute findings. CTA HEAD: 1. No acute findings. Abdomen X-Ray 05/21/25 07:44 IMPRESSION: 1. No acute abnormality. Abdomen/Pelvis CT 05/21/25 17:14 IMPRESSION: 1. No acute findings in the upper abdomen and pelvis. Fecal impaction in the colon. 2. Mildly distended gallbladder. No edema of the gallbladder wall. No calcified stones. 3. Hiatus hernia. Brain MRI 05/22/25 08:45 IMPRESSION: 1. No acute ischemic event, mass or hemorrhage. No suspicious lesions or masses seen. Previously described left-sided acusticus lesion or enhancement focus not clearly changed. 2. Mild to moderately advanced chronic microvascular ischemic appearing white matter changes which have progressed since the 2020 exam. Labs Labs: Laboratory Results - last 24 hr 05/21/25 05/22/25 05/23/25 11:16 02:51 12:21 WBC RBC Hgb Hct MCV MCH MCHC RDW Plt Count MPV Sodium 126 L Potassium Chloride Carbon Dioxide Anion Gap BUN Creatinine Estim Creat Clear Calc Estimated GFR Glucose POC Capillary Glucose Calcium Total Bilirubin AST ALT Alkaline Phosphatase Total Protein Total Protein (PEP) 6.2 Albumin Albumin (PEP) 3.7 Globulin (PEP) 2.5 Albumin/Globulin Ratio 1.5 Fnsjv-8-Oikuhjlfu 0.2 Ingtm-4-Hgjbgspwu 0.6 Beta Globulins 0.9 Gamma Globulins 0.7 PEP Comment Comment Urine Total Protein 51.3 Urine Albumin (PEP) 50.7 U Yzmyh-3-Lkzmfjfi 3.9 U Yfgft-7-Hqnlpnja 12.3 U Beta Globulin 20.5 U Gamma Globulin 12.6 U Random M-Mauro (%) Not observed Urine PEP Note Comment Pr Electrophoresis MSpike Not observed 05/23/25 05/23/25 05/24/25 18:10 19:09 05:09 WBC 8.2 RBC 4.07 L Hgb 12.1 Hct 34.3 L MCV 84.3 MCH 29.7 MCHC 35.3 RDW 11.8 Plt Count 148 L MPV 12.6 H Sodium 124 L 129 L Potassium 4.1 Chloride 98 Carbon Dioxide 23 Anion Gap 8 BUN 12 Creatinine 0.62 L Estim Creat Clear Calc 54 Estimated GFR > 60 Glucose 89 POC Capillary Glucose 163 H Calcium 8.4 Total Bilirubin 0.6 AST 31 ALT 16 Alkaline Phosphatase 43 Total Protein 6.4 Total Protein (PEP) Albumin 3.7 Albumin (PEP) Globulin (PEP) Albumin/Globulin Ratio Svzqx-3-Qmadbgghp Fogln-7-Autewrenw Beta Globulins Gamma Globulins PEP Comment Urine Total Protein Urine Albumin (PEP) U Jrxpk-8-Znabrzel U Qqhte-3-Fgspukrf U Beta Globulin U Gamma Globulin U Random M-Mauro (%) Urine PEP Note Pr Electrophoresis MSpike 05/24/25 07:20 WBC RBC Hgb Hct MCV MCH MCHC RDW Plt Count MPV Sodium Potassium Chloride Carbon Dioxide Anion Gap BUN Creatinine Estim Creat Clear Calc Estimated GFR Glucose POC Capillary Glucose 110 H Calcium Total Bilirubin AST ALT Alkaline Phosphatase Total Protein Total Protein (PEP) Albumin Albumin (PEP) Globulin (PEP) Albumin/Globulin Ratio Qekvw-5-Cqzwbksgy Pxolv-2-Rptlghxah Beta Globulins Gamma Globulins PEP Comment Urine Total Protein Urine Albumin (PEP) U Rwfjx-1-Qbajexqk U Uzpqb-6-Coekqdjh U Beta Globulin U Gamma Globulin U Random M-Mauro (%) Urine PEP Note Pr Electrophoresis MSpike Quality VTE Prophylaxis VTE prophylaxis: pharmacologic ordered
--- NOTE | 2025-05-24 12:15 | PCNFU ---
Nutrition Follow-Up Complete: Suboptimal Energy Intake as related to Nausea/Vomiting as evidenced by poor po intake and weight loss reported. Meet estimated nutritional needs. - Slow progress. Continue with same goal Goal: Pt current nutrition is Clear liquids due to vomiting, constipation. NPO/CL day 4. Nutrition recommendation: Advance diet as medically able. If not able to advance diet recommend short-term PPN (Clinmix E 4.25/5 @60 ml/h) or TPN (Clinmix 5/15 @ 40 ml/h) Last recorded weight is 60 kg. Bowel Motility: +1 BM 05/24 Labs Reviewed: HCt 34.3, Na 129, Cre 0.62 Meds Noted: Colace,miralax, reglan Skin: No skin issues Additional Notes: Still on clear liquids because of vomiting. KUB was negative. Having bowel movements. Continue to advance diet as able. Will monitor, weight, labs, skin, diet orders, meds every 3 days.
--- NOTE | 2025-05-24 12:32 | P.PNNP_ITS ---
Progress Note: A&P Assessment and Plan (1) Hyponatremia: Code(s): E87.1 - Hypo-osmolality and hyponatremia Status: Acute Assessment and Plan: * ongoing improvement * noted on admission * no real improvement with normal saline IVFs * evaluation to date noted: * CT/MRI of brain negative * TSH okay * cortisol good * SPEP/UPEP negative * urine electrolytes suggest prerenal azotemia * serum/urine osmolality pending * HCTZ on hold * s/p 3% saline x 2 * on salt tabs * holding lasix given previous nausea/vomiting * follow trend of repeat sodium levels (2) Altered mental status: Qualifiers: Altered mental status type: unspecified Qualified Code(s): R41.82 - Altered mental status, unspecified Code(s): R41.82 - Altered mental status, unspecified Status: Acute Assessment and Plan: * resolved * noted on presentation * etiology not clear * extensive evaualtion to date noted * CT head and head/neck * MRI of brain * Echo * EEG * Neurology following (3) Nausea & vomiting: Code(s): R11.2 - Nausea with vomiting, unspecified Status: Acute Assessment and Plan: * slow improvement * noted on admission * on antiemetics * CT imaging noted: fecal impaction in the colon * on bowel regiment (4) Hypertension: Qualifiers: Hypertension type: primary hypertension Qualified Code(s): I10 - Essential (primary) hypertension Code(s): I10 - Essential (primary) hypertension Status: Chronic Assessment and Plan: * reasonable control * HCTZ on hold * follow trend of hemodynamics Would be opposed to discharge from renal perspective if sodium continues to improve -- repeat outpatient labs to monitor sodium and hopefully weaning of salt tabs if sodium remains stable. Will continue to follow. L Subjective Date/time seen: 05/24/25 12:32 Interval history: Follow-up for acute on chronic hyponatremia. Appears to be doing quite well at the time of my visit; no further nausea/vomiting noted and able to tolerate oral intake without any issues or problems; overall, she states she feels quite well. Exam 2 Narrative: General: elderly but WD/WN female in NAD Heart: normal S1 and S2; no rub Lungs: clear to auscultation Abdomen: soft, nontender, nondistended, positive bowel sounds Extremities: no cyanosis or clubbing; no edema Skin: no nodules Objective Data Vital Signs Vital Signs: Vital Signs Temp Pulse Resp BP Pulse Ox O2 Del Method 05/24/25 12:22 97.6 F 60 16 158/62 H 100 05/24/25 10:30 Room Air 05/24/25 08:00 52 L 05/24/25 05:28 97.7 F 54 L 20 164/47 H 100 05/24/25 04:00 52 L 05/24/25 00:00 58 L 05/23/25 21:08 98.2 F 55 L 16 162/55 H 98 05/23/25 21:07 56 L 05/23/25 20:00 67 05/23/25 20:00 Room Air Intake/Output Intake/Output: Intake & Output 05/21/25 05/22/25 05/23/25 05/24/25 23:59 23:59 23:59 23:59 Intake Total 200 1020 1920 Output Total 150 1100 Balance 50 1020 820 Meds/Results Medications: Active Medications Generic Name Dose Route Start Last Admin Trade Name Freq PRN Reason Stop Dose Admin Acetaminophen 650 mg 05/20/25 17:30 05/20/25 21:07 Acetaminophen 325 Mg Tablet PO 650 mg Q6H PRN Administration Mild Pain (1-3) or Fever Aspirin 81 mg 05/21/25 13:50 05/24/25 10:51 Aspirin 81 Mg Enteric Tablet PO 81 mg QAM HARVEY Administration Carvedilol 6.25 mg 05/20/25 21:00 05/24/25 17:35 Carvedilol 6.25 Mg Tablet PO Not Given Q12HR HARVEY Clopidogrel Bisulfate 75 mg 05/21/25 13:50 05/24/25 10:50 Clopidogrel Bisulfate 75 Mg Tablet PO 75 mg QAM HARVEY Administration Dextrose 12.5 gm 05/21/25 13:30 Dextrose 50% 25 Gm/50 Ml Syringe IV PUSH PRN PRN Hypoglycemia Protocol Diazepam 10 mg 05/20/25 17:38 05/22/25 06:54 Diazepam (*Crx) 5 Mg Tablet PO 10 mg Q6H PRN Administration Anxiety Docusate Sodium 100 mg 05/20/25 17:44 05/21/25 08:31 Docusate Sodium 100 Mg Capsule PO 100 mg Q12H PRN Administration Constipation Duloxetine HCl 20 mg 05/21/25 09:00 05/24/25 10:50 Duloxetine Hcl 20 Mg Capsule.Dr PO 20 mg DAILY HARVEY Administration Enoxaparin Sodium 40 mg 05/20/25 21:00 05/23/25 21:07 Enoxaparin 40 Mg/0.4 Ml Syringe SUB-Q 40 mg HS HARVEY Administration Fluticasone Propionate 2 spray 05/21/25 09:00 05/24/25 10:54 Fluticasone Propionate 0.05% Na Spr 16 Gm Btl (*Bkc) NASAL Not Given DAILY HARVEY Glucagon 1 mg 05/21/25 13:30 Glucagon For Inj 1 Mg Vial IM PRN PRN Hypoglycemia Protocol Glucose 15 gm 05/21/25 13:30 Glucose Oral Gel 15 Gm Of Glucse In 37.5 Gm Tube PO PRN PRN Hypoglycemia Protocol Hydralazine HCl 50 mg 05/20/25 21:00 05/24/25 17:35 Hydralazine Hcl 50 Mg Tablet PO Not Given Q12HR HARVEY Dextrose 1,000 mls @ 100 mls/hr 05/21/25 13:30 Dextrose 5% 1,000 Ml IVPB PRN PRN Hypoglycemia Protocol Lactulose 20 gm 05/23/25 15:55 05/24/25 11:01 Lactulose 20 Gm/30 Ml Udc PO 20 gm QAM HARVEY Administration Losartan Potassium 100 mg 05/21/25 09:00 05/24/25 10:54 Losartan Potassium 100 Mg Tablet PO 100 mg DAILY HARVEY Administration Metoclopramide HCl 5 mg 05/21/25 00:00 05/24/25 17:41 Metoclopramide Hcl Inj 10 Mg/2 Ml Vial IV PUSH 5 mg Q6HR HARVEY Administration Nifedipine 30 mg 05/21/25 09:00 05/24/25 17:35 Nifedipine 30 Mg Tab.Er.24 PO Not Given DAILY HARVEY Ondansetron HCl 4 mg 05/20/25 17:32 05/22/25 09:06 Ondansetron Inj 4 Mg/2 Ml Vial IV PUSH 4 mg Q4H PRN Administration Nausea And Vomiting Pantoprazole Sodium 40 mg 05/21/25 09:00 05/24/25 17:40 Pantoprazole 40 Mg Tablet PO 40 mg BID HARVEY Administration Polyethylene Glycol 17 gm 05/20/25 22:40 05/24/25 11:09 Polyethylene Glycol 3350 17 Gm Powd.Pack PO Not Given QAM HARVEY Potassium Chloride 40 meq 05/22/25 15:50 05/24/25 10:50 Potassium Chloride 20 Meq Packet (For Liquid) PO 40 meq DAILY HARVEY Administration Rosuvastatin Calcium 20 mg 05/20/25 21:00 05/23/25 21:07 Rosuvastatin 20 Mg Tablet PO 20 mg HS HARVEY Administration Sodium Chloride 1 gm 05/22/25 18:50 05/24/25 17:40 Sodium Chloride 1 Gm Tablet PO 1 gm BID HARVEY Administration Radiology Results: ITS Impressions Head CT 05/20/25 07:23 IMPRESSION: 1. No acute intracranial findings. Chest X-Ray 05/20/25 08:29 IMPRESSION: 1. Portable chest x-ray with no focal acute process. Head/Neck CTA 05/20/25 09:16 IMPRESSION: CTA NECK: 1. No acute findings. CTA HEAD: 1. No acute findings. Abdomen X-Ray 05/21/25 07:44 IMPRESSION: 1. No acute abnormality. Abdomen/Pelvis CT 05/21/25 17:14 IMPRESSION: 1. No acute findings in the upper abdomen and pelvis. Fecal impaction in the colon. 2. Mildly distended gallbladder. No edema of the gallbladder wall. No calcified stones. 3. Hiatus hernia. Brain MRI 05/22/25 08:45 IMPRESSION: 1. No acute ischemic event, mass or hemorrhage. No suspicious lesions or masses seen. Previously described left-sided acusticus lesion or enhancement focus not clearly changed. 2. Mild to moderately advanced chronic microvascular ischemic appearing white matter changes which have progressed since the 2020 exam. Labs Labs: Laboratory Tests 05/24/25 05:09 05/24/25 05:09 Calcium 8.4 Total Bilirubin 0.6 AST 31 ALT 16 Alkaline Phosphatase 43 Total Protein 6.4 Albumin 3.7
[2025-05-24] MEDS: ENOXAPARIN 40 MG/0.4 ML SYRINGE SUB-Q (21:18)
[2025-05-24] MEDS: ROSUVASTATIN 20 MG TABLET PO (21:19)
[2025-05-25] VITALS: PULSE 62
[2025-05-25 00:48] VITALS: PULSE 53
[2025-05-25 04:00] VITALS: PULSE 60
[2025-05-25 05:00] LABS: Hematocrit 35.2 % (37.0-47.0); Hemoglobin 12.3 g/dL (12.0-15.0); Mean Corpuscular HGB Conc 34.9 g/dl (32-36); Mean Corpuscular Hemoglobin 29.8 pg (26-34); Mean Corpuscular Volume 85.2 fl (80-100); Platelet Count Result 166 k/mm3 (150-375); Red Blood Count 4.13 M/mm3 (4.2-5.4); White Blood Count 8.2 K/mm3 (4.5-10.0)
[2025-05-25] MEDS: METOCLOPRAMIDE HCL INJ 10 MG/2 ML VIAL 5 MG IV PUSH (05:25)
[2025-05-25 05:27] VITALS: BP 149/52; PULSE 59; RESP 18; TEMP 36.4; O2SAT 100
[2025-05-25 05:39] LABS: Alanine Aminotransferase 18 U/L (6-35); Albumin Level 3.8 g/dL (3.5-5.1); Alkaline Phosphatase 53 U/L (38-126); Anion Gap 6 mmol/L (4-12); Aspartate Amino Transferase 31 U/L (14-36); Bilirubin,Total 0.6 mg/dL (0.2-1.3); Blood Urea Nitrogen 9 mg/dL (7-17); Calcium 8.4 mg/dL (8.4-10.2); Carbon Dioxide 25 mmol/L (22-30); Chloride 99 mmol/L (98-107); Estimated CRCL calculation 54 ml/min; Estimated Glomerular Filt Rate > 60; Glucose 106 mg/dL (65-110); Potassium 4.2 mmol/L (3.4-5.0); Sodium 130 mmol/L (137-145); Total Protein 6.4 g/dL (6.3-8.2)
[2025-05-25 08:00] VITALS: PULSE 52
--- NOTE | 2025-05-25 09:39 | P.DS_ITS ---
DS: Admitting Diagnosis Discharge Date 05/25 Admitting Diagnosis confusion DS: Discharge Diagnosis Discharge Diagnosis (1) Altered mental status: Qualifiers: Altered mental status type: unspecified Qualified Code(s): R41.82 - Altered mental status, unspecified Code(s): R41.82 - Altered mental status, unspecified Status: Acute (2) Hyponatremia: Code(s): E87.1 - Hypo-osmolality and hyponatremia Status: Acute (3) Nausea & vomiting: Code(s): R11.2 - Nausea with vomiting, unspecified Status: Acute (4) Hypertension: Qualifiers: Hypertension type: primary hypertension Qualified Code(s): I10 - Essential (primary) hypertension Code(s): I10 - Essential (primary) hypertension Status: Chronic (5) Vestibular schwannoma: Code(s): D33.3 - Benign neoplasm of cranial nerves Status: Chronic (6) Constipation: Qualifiers: Constipation type: unspecified constipation type Qualified Code(s): K59.00 - Constipation, unspecified Code(s): K59.00 - Constipation, unspecified Status: Acute DS: Summary Hospital Course Hospital Course: 80-year-old female past medical history of left-sided vestibular schwannoma, HTN, hyperlipidemia, GERD presents to the ED with her family on 05/20/2025 for increased altered mental status. Family states that the patient is more altered than normal. The further state the patient was her normal self when she went to bed but seemed more confused this morning and that she had some word-finding difficulty. Patient had her vestibular schwannoma excised in 2019 at [facility]. She continues to follow-up and has serial MRIs to monitor it. Per family, patient has no seizure history. Patient is forgetful and is somewhat of a poor historian. She denies fevers, chest pain, cough, vision changes. Patient states she did have a bout of nausea and vomiting on 05/19. She states she has constipation at times which she takes Colace for. Patient endorses a headache which she states began after starting a new blood pressure medication and is concerned it is the cause of her headache. Mental status did improve while patient was in the ED. Initial vital signs 190/69, HR 68, respirations 20, afebrile and 98% on room air Lab significant for WBC 10.6, sodium 122, chloride 88, creatinine 0.59, glucose 135, UA without signs of infection. Viral panel negative. ECG with normal sinus rhythm Head CT with no acute intracranial findings. Chest x-ray with no acute process. CTA head neck with no acute findings. Neurology and nephrology were consulted. # hyponatremia * ongoing improvement * no real improvement with normal saline IVFs * evaluation to date noted: * CT/MRI of brain negative * TSH okay * cortisol good * SPEP/UPEP negative * urine electrolytes suggest prerenal azotemia * serum/urine osmolality pending * HCTZ on hold * s/p 3% saline x 2 * on salt tabs * holding lasix given previous nausea/vomiting 05/25 - Na is 130 this am # Nausea & vomiting # Constipation * slow improvement * noted on admission * on antiemetics * CT imaging noted: fecal impaction in the colon * on bowel regiment- had been having several BMs in the last couple days * tolerating diet well # Hypertension: * reasonable control * HCTZ on hold * follow trend of hemodynamics repeat outpatient labs to monitor sodium and hopefully weaning of salt tabs if sodium remains stable. EEG: IMPRESSION This is an mild abnormal EEG due to presence of diffuse background slowing suggestive of generalized encephalopathy. No focal or paroxysmal abnormalities were identified however significant muscle tension artifacts were seen in frontotemporal areas which may limit identification of focal abnormalities. Follow-up study with recording of sleep may be helpful. Pt had complete resolution of dizziness and feels well to go home. Will need a close f/u with PCP and cardiology. Status at Discharge Functional status at discharge: independent ambulation Overall status at discharge: patient is progressing back to baseline Time Spent with Patient Time attestation: Total time spent providing and/or coordinating discharge services: Time spent: Greater than 30 minutes Exam Narrative: General: female in no acute respiratory distress who is nontoxic appearing, lying semi recumbent in bed. HEENT: Normocephalic. Atraumatic. Extraocular movement intact. Sclera clear and anicteric. No facial asymmetry. Chest: Lungs are clear to auscultation bilaterally. No wheezes or crackles. CV: Heart was regular rate and rhythm. S1-S2. No murmurs, gallops, or rubs. Abd: Abdomen was soft. Nontender. Nondistended. Positive bowel sounds. Ext: No clubbing, cyanosis, or edema. DP pulses bilaterally. Neuro: Patient is alert and oriented x3. Strength is 5/5 in both upper and lower extremities. Cranial nerves 2-12 are intact. Speech is clear Const: General: comfortable DS: Data Data Completed and Pending Completed studies during hospitalization: ct head, cta, mri brain, eeg Labs on day of discharge: Labs from last 24 hours 05/25/25 05/25/25 05/24/25 08:00 04:21 19:39 WBC 8.2 RBC 4.13 L Hgb 12.3 Hct 35.2 L MCV 85.2 MCH 29.8 MCHC 34.9 RDW 12.0 Plt Count 166 MPV 13.0 H Sodium 130 L Potassium 4.2 Chloride 99 Carbon Dioxide 25 Anion Gap 6 BUN 9 Creatinine 0.61 L Estim Creat Clear Calc 54 Estimated GFR > 60 Glucose 106 POC Capillary Glucose 118 H 151 H Calcium 8.4 Total Bilirubin 0.6 AST 31 ALT 18 Alkaline Phosphatase 53 Total Protein 6.4 Albumin 3.8 05/24/25 05/24/25 16:37 11:26 WBC RBC Hgb Hct MCV MCH MCHC RDW Plt Count MPV Sodium Potassium Chloride Carbon Dioxide Anion Gap BUN Creatinine Estim Creat Clear Calc Estimated GFR Glucose POC Capillary Glucose 93 151 H Calcium Total Bilirubin AST ALT Alkaline Phosphatase Total Protein Albumin Discharge Plan Discharge Attending physician on discharge: Rj Walden Consulting providers: Johnnie Carrasquillo; Rosemary Worley; Heidi Reddy Discharging Clinician: Rebeca Betancourt Patient Disposition: Home Activity: may shower Diet: heart healthy Discharge Instructions: Please make sure lin follow up iwth your pre press operator as we dischussed. We were holding your HCTZ (BP) med. YOu were taking salt tab and received IV saline to improve your sodium level. IT was 130 this morning. Please have a close f/up with your PCP or nephrology to have labs work repeated and to get further instructions as to when to stop salt tablets if you can. DR Carrasquillo (neurologist) started you on aspirin and plavix in order to help prevent any TIA or stroke in the future. Continue to take your statin (cholesterol medication). Please take it until directed otherwise per neurologist. Please f/u with your own neurologist or see Dr Carrasquillo at [place] - contact info is provided. Patient Instructions: Antibiotic Form, Stroke (GEN), Stroke Prevention (GEN) Patient Language: Bulgarian Stand Alone Forms: General Discharge Information Follow-up/Referrals: Heidi Reddy MD [Physician, Nephrology] - 2 Weeks Bekah,Tima Canales MD [Primary Care Provider, Unknown] - 2 Weeks Johnnie Carrasquillo MD [Physician, Neurology] - 2 Weeks Discharge Medications: New clopidogrel 75 mg Tablet 75 mg PO QAM Qty: 30 0RF aspirin 81 mg Tablet,Delayed Release (Dr/Ec) 81 mg PO QAM Qty: 30 0RF docusate sodium 100 mg Capsule 100 mg PO Q12H PRN (Reason: Constipation) Qty: 30 0RF sodium chloride 1,000 mg Tablet,Soluble 1,000 mg PO BID Qty: 60 0RF Continued carvedilol 6.25 mg tablet 6.25 mg PO Q12H duloxetine 20 mg capsule,delayed release(DR/EC) 20 mg PO HS diazepam 10 mg tablet 10 mg PO Q6H PRN (Reason: anxiety) estradiol 0.01 % (0.1 mg/gram) cream 1 g VAGINAL .COMPLEX Rx Instructions: 1 g vaginally 2x a week fluticasone propionate 50 mcg/actuation spray,suspension 2 spray INTRANASAL DAILY losartan 100 mg tablet 100 mg PO DAILY nifedipine 30 mg tablet extended release 30 mg PO DAILY rosuvastatin 20 mg tablet 20 mg PO DAILY omeprazole 20 mg capsule,delayed release(DR/EC) 20 mg PO BID calcium carbonate-vitamin D3 600 mg calcium- 200 unit tablet,chewable 1 tablet PO BID Daily Fiber (psyllium-aspart) 3.4 gram powder in packet 3.4 g PO DAILY Held hydrochlorothiazide 25 mg tablet 25 mg PO DAILY Hold Instructions: Resume on 06/07/25. hold until directed otherwise per your PCP or nephrology Discontinued hydralazine 50 mg tablet 50 mg PO BID Date of admission: 05/21/25 08:11 Primary Care Provider: eBkahTima Admitting Provider: Rj Walden Attending physician on admission: Rj Walden Condition: Stable Quality VTE Prophylaxis VTE prophylaxis: pharmacologic ordered Hospitalist MIPS Heart Failure (Exclusion) Patient has history of Heart Transplant or Left Ventricular Assistive Device?: No IF YES, STOP HERE Heart Failure (Qualifier) Patient has current or prior documentation of LVEF less than or equal to 40%, or mod/servere depressed LVSF?: No IF NO, STOP HERE
[2025-05-25 09:44] VITALS: PULSE 59
[2025-05-25] MEDS: CLOPIDOGREL BISULFATE 75 MG TABLET PO (09:44)
[2025-05-25] MEDS: ASPIRIN 81 MG ENTERIC TABLET PO (09:44)
[2025-05-25] MEDS: SODIUM CHLORIDE 1 GM TABLET PO (09:44)
[2025-05-25] MEDS: PANTOPRAZOLE 40 MG TABLET PO (09:45)
[2025-05-25] MEDS: POTASSIUM CHLORIDE 20 MEQ PACKET (FOR LIQUID) 40 MEQ PO (09:45)
[2025-05-25] MEDS: LOSARTAN POTASSIUM 100 MG TABLET PO (09:45)
[2025-05-25] MEDS: FLUTICASONE PROPIONATE 0.05% NA SPR 16 GM BTL (*BKC) 2 SPRAY NASAL (09:46)
--- NOTE | 2025-05-25 12:23 | P.PNNP_ITS ---
Progress Note: A&P Assessment and Plan (1) Hyponatremia: Code(s): E87.1 - Hypo-osmolality and hyponatremia Status: Acute Assessment and Plan: * present on admission. * Prior labs unavailable * evaluation to date noted: * CT/MRI of brain negative * TSH okay * cortisol good * SPEP/UPEP negative * urine electrolytes suggest prerenal azotemia * serum/urine osmolality pending * HCTZ on hold * received 3% saline x 2 * on salt tabs. Not on fluid restriction because of her nausea and vomiting /NPO status. * sodium level is back up to 130. (2) Altered mental status: Qualifiers: Altered mental status type: unspecified Qualified Code(s): R41.82 - Altered mental status, unspecified Code(s): R41.82 - Altered mental status, unspecified Status: Acute Assessment and Plan: * resolved * noted on presentation * etiology not clear * extensive evaualtion to date noted * CT head and head/neck * MRI of brain * Echo * EEG * Neurology following (3) Nausea & vomiting: Code(s): R11.2 - Nausea with vomiting, unspecified Status: Acute Assessment and Plan: * slow improvement * noted on admission * on antiemetics * CT imaging noted: fecal impaction in the colon * on bowel regiment (4) Hypertension: Qualifiers: Hypertension type: primary hypertension Qualified Code(s): I10 - Essential (primary) hypertension Code(s): I10 - Essential (primary) hypertension Status: Chronic Assessment and Plan: * Systolic 140s to 160s. * HCTZ on hold * She is currently getting carvedilol 6.25 twice a day, hydralazine 50 q.12, losartan 100 q.day, nifedipine 30 q.day. * pulse is 59 so we can not increase the carvedilol. Will change hydralazine to Q 8. * follow trend of hemodynamics Will continue to follow. Subjective Date/time seen: 05/25/25 12:23 Interval history: patient feels okay. No chest pain or shortness of breath Exam Narrative: General: elderly but WD/WN female in NAD Heart: normal S1 and S2; no rub or gallop Lungs: clear to auscultation Abdomen: soft, nontender, nondistended, positive bowel sounds Extremities: no cyanosis or clubbing; no edema Skin: no nodules or rash Objective Data Vital Signs Vital Signs: Vital Signs - 24 hr 05/24/25 13:22 05/24/25 16:00 05/24/25 19:34 Temperature 97.6 F 98.1 F Pulse Rate 60 52 L 54 L Respiratory Rate 16 16 Blood Pressure 158/62 H 160/53 H Pulse Oximetry 100 99 Oxygen Delivery 05/24/25 20:00 05/24/25 20:00 05/25/25 00:00 Temperature Pulse Rate 54 L 56 L 62 Respiratory Rate Blood Pressure Pulse Oximetry Oxygen Delivery 05/25/25 00:48 05/25/25 04:00 05/25/25 05:27 Temperature 97.6 F Pulse Rate 53 L 60 59 L Respiratory Rate 18 Blood Pressure 149/52 H Pulse Oximetry 100 Oxygen Delivery 05/25/25 08:00 05/25/25 09:44 05/25/25 09:45 Temperature Pulse Rate 52 L 59 L Respiratory Rate Blood Pressure Pulse Oximetry Oxygen Delivery Room Air Intake/Output Intake/Output: Intake & Output 05/22/25 05/23/25 05/24/25 05/25/25 23:59 23:59 23:59 23:59 Intake Total 1020 1920 720 Output Total 1100 Balance 1020 820 720 Meds/Results Medications: Active Medications Generic Name Dose Route Start Last Admin Trade Name Freq PRN Reason Stop Dose Admin Acetaminophen 650 mg 05/20/25 17:30 05/20/25 21:07 Acetaminophen 325 Mg Tablet PO 650 mg Q6H PRN Administration Mild Pain (1-3) or Fever Aspirin 81 mg 05/21/25 13:50 05/25/25 09:44 Aspirin 81 Mg Enteric Tablet PO 81 mg QAM HARVEY Administration Carvedilol 6.25 mg 05/20/25 21:00 05/25/25 09:44 Carvedilol 6.25 Mg Tablet PO 6.25 mg Q12HR HARVEY Administration Clopidogrel Bisulfate 75 mg 05/21/25 13:50 05/25/25 09:44 Clopidogrel Bisulfate 75 Mg Tablet PO 75 mg QAM HARVEY Administration Dextrose 12.5 gm 05/21/25 13:30 Dextrose 50% 25 Gm/50 Ml Syringe IV PUSH PRN PRN Hypoglycemia Protocol Diazepam 10 mg 05/20/25 17:38 05/22/25 06:54 Diazepam (*Crx) 5 Mg Tablet PO 10 mg Q6H PRN Administration Anxiety Docusate Sodium 100 mg 05/20/25 17:44 05/21/25 08:31 Docusate Sodium 100 Mg Capsule PO 100 mg Q12H PRN Administration Constipation Duloxetine HCl 20 mg 05/21/25 09:00 05/25/25 09:45 Duloxetine Hcl 20 Mg Capsule.Dr PO 20 mg DAILY HARVEY Administration Enoxaparin Sodium 40 mg 05/20/25 21:00 05/24/25 21:18 Enoxaparin 40 Mg/0.4 Ml Syringe SUB-Q 40 mg HS HARVEY Administration Fluticasone Propionate 2 spray 05/21/25 09:00 05/25/25 09:46 Fluticasone Propionate 0.05% Na Spr 16 Gm Btl (*Bkc) NASAL 2 spray DAILY HARVEY Administration Glucagon 1 mg 05/21/25 13:30 Glucagon For Inj 1 Mg Vial IM PRN PRN Hypoglycemia Protocol Glucose 15 gm 05/21/25 13:30 Glucose Oral Gel 15 Gm Of Glucse In 37.5 Gm Tube PO PRN PRN Hypoglycemia Protocol Hydralazine HCl 50 mg 05/20/25 21:00 05/25/25 09:44 Hydralazine Hcl 50 Mg Tablet PO 50 mg Q12HR HARVEY Administration Dextrose 1,000 mls @ 100 mls/hr 05/21/25 13:30 Dextrose 5% 1,000 Ml IVPB PRN PRN Hypoglycemia Protocol Lactulose 20 gm 05/23/25 15:55 05/25/25 09:47 Lactulose 20 Gm/30 Ml Udc PO Not Given QAM HARVEY Losartan Potassium 100 mg 05/21/25 09:00 05/25/25 09:45 Losartan Potassium 100 Mg Tablet PO 100 mg DAILY HARVEY Administration Metoclopramide HCl 5 mg 05/21/25 00:00 05/25/25 05:25 Metoclopramide Hcl Inj 10 Mg/2 Ml Vial IV PUSH 5 mg Q6HR HARVEY Administration Nifedipine 30 mg 05/21/25 09:00 05/25/25 09:45 Nifedipine 30 Mg Tab.Er.24 PO 30 mg DAILY HARVEY Administration Ondansetron HCl 4 mg 05/20/25 17:32 05/22/25 09:06 Ondansetron Inj 4 Mg/2 Ml Vial IV PUSH 4 mg Q4H PRN Administration Nausea And Vomiting Pantoprazole Sodium 40 mg 05/21/25 09:00 05/25/25 09:45 Pantoprazole 40 Mg Tablet PO 40 mg BID HARVEY Administration Polyethylene Glycol 17 gm 05/20/25 22:40 05/25/25 09:47 Polyethylene Glycol 3350 17 Gm Powd.Pack PO 17 gm QAM HARVEY Administration Potassium Chloride 40 meq 05/22/25 15:50 05/25/25 09:45 Potassium Chloride 20 Meq Packet (For Liquid) PO 40 meq DAILY HARVEY Administration Rosuvastatin Calcium 20 mg 05/20/25 21:00 05/24/25 21:19 Rosuvastatin 20 Mg Tablet PO 20 mg HS HARVEY Administration Sodium Chloride 1 gm 05/22/25 18:50 05/25/25 09:44 Sodium Chloride 1 Gm Tablet PO 1 gm BID HARVEY Administration Radiology Results: ITS Impressions Head CT 05/20/25 07:23 IMPRESSION: 1. No acute intracranial findings. Chest X-Ray 05/20/25 08:29 IMPRESSION: 1. Portable chest x-ray with no focal acute process. Head/Neck CTA 05/20/25 09:16 IMPRESSION: CTA NECK: 1. No acute findings. CTA HEAD: 1. No acute findings. Abdomen X-Ray 05/21/25 07:44 IMPRESSION: 1. No acute abnormality. Abdomen/Pelvis CT 05/21/25 17:14 IMPRESSION: 1. No acute findings in the upper abdomen and pelvis. Fecal impaction in the colon. 2. Mildly distended gallbladder. No edema of the gallbladder wall. No calcified stones. 3. Hiatus hernia. Brain MRI 05/22/25 08:45 IMPRESSION: 1. No acute ischemic event, mass or hemorrhage. No suspicious lesions or masses seen. Previously described left-sided acusticus lesion or enhancement focus not clearly changed. 2. Mild to moderately advanced chronic microvascular ischemic appearing white matter changes which have progressed since the 2020 exam. Labs Labs: Laboratory Results - last 24 hr 05/24/25 05/24/25 05/25/25 16:37 19:39 04:21 WBC 8.2 RBC 4.13 L Hgb 12.3 Hct 35.2 L MCV 85.2 MCH 29.8 MCHC 34.9 RDW 12.0 Plt Count 166 MPV 13.0 H Sodium 130 L Potassium 4.2 Chloride 99 Carbon Dioxide 25 Anion Gap 6 BUN 9 Creatinine 0.61 L Estim Creat Clear Calc 54 Estimated GFR > 60 Glucose 106 POC Capillary Glucose 93 151 H Calcium 8.4 Total Bilirubin 0.6 AST 31 ALT 18 Alkaline Phosphatase 53 Total Protein 6.4 Albumin 3.8 05/25/25 05/25/25 08:00 11:55 WBC RBC Hgb Hct MCV MCH MCHC RDW Plt Count MPV Sodium Potassium Chloride Carbon Dioxide Anion Gap BUN Creatinine Estim Creat Clear Calc Estimated GFR Glucose POC Capillary Glucose 118 H 143 H Calcium Total Bilirubin AST ALT Alkaline Phosphatase Total Protein Albumin
--- NOTE | 2025-05-25 20:32 | PC.NURSE ---
patient called in after d/c, wasn't able to get meds from [facility] until morning and had questions about what time she took her meds today before d/c
[2025-05-26 09:07] LABS: Osmolality, Urine 619 mOsmol/kg (.)
[2025-05-26 16:07] LABS: Osmolality, Serum 256 mOsmol/kg (280-301)
== END 2025-05-25 14:40 | disposition home or self-care (01) | DRG 641 ==
LOC: ANHED 10:47 → ANH3MEDSUR 14:31 → ANH2MED 15:22
PROVIDERS: Emergency Medicine; Internal Medicine Nephrology; Nurse Practitioner Adult Health; Student in an Organized Health Care Education/Training Program; Admitting Provider Internal Medicine; Emergency Provider Emergency Medicine; PCP Internal Medicine; Visit Provider Nurse Practitioner
DX: E87.1 Hypo-osmolality and hyponatremia (principal); R47.01 Aphasia; R41.82 Altered mental status, unspecified; K59.00 Constipation, unspecified; Z86.011 Personal history of benign neoplasm of the brain; I10 Essential (primary) hypertension; K21.9 Gastro-esophageal reflux disease without esophagitis; E78.5 Hyperlipidemia, unspecified
CPT/HCPCS: 36415; 70450; 70496; 70498; 70553; 71045; 74018; 74177; 80048; 80053; 80061; 81001; 82533; 82570; 82948; 83036; 83930; 83935; 84155; 84156; 84165; 84166; 84295; 84300; 84443; 85025; 85027; 85610; 85730; 87637; 93005; 93306; 95816; 96360; 96361; 96372; 96374; 96375; 96376; 97161; 97165; 99285; A9270; A9577; G0378; J1650; J2405; J2765; J7120; J7131; Q9967